=== PATIENT | male | born 1960 | race African-American/Black ===

== ENCOUNTER 2017-05-22 11:03 | Inpatient (IN) | payer OTHER ==
[2017-05-22 11:25] VITALS: BMI 31.1
--- NOTE | 2017-05-22 11:29 | PDOC ---
History of Present Illness - General Chief Complaint: Diarrhea Stated Complaint: NAUSEA, DRY HEAVES, DIARRHEA Time Seen by Provider: 05/22/17 11:15 History Source: Patient Exam Limitations: No Limitations - History of Present Illness Initial Comments: 56 yo M history DM on oral medications presents with N/V/D over the past 5 days. He states that he has been unable to eat or drink, as it is always followed by either vomiting or diarrhea. Last episode of vomiting was this morning. He has not tried to eat anything since that time. Denies f/c. He states that his abdomen feels "queasy", but not specifically pain. He states that his last A1C was 10.8, he does not check fingerstick glucose at home. Past History - Past Medical History Allergies/Adverse Reactions: Allergies Allergy/AdvReac Type Severity Reaction Status Date / Time No Known Allergies Allergy Verified 05/22/17 11:17 Home Medications: Ambulatory Orders Glipizide [Glucotrol] 5 mg PO BID 05/22/17 Metformin HCl [Metformin HCl ER] 500 mg PO BID 05/22/17 - Psycho/Social/Smoking Cessation Hx Anxiety: No Suicidal Ideation: No Smoking History: Never smoked Hx Alcohol Use: No Drug/Substance Use Hx: No Substance Use Type: None Review of Systems - Review of Systems Able to Perform ROS?: Yes Comments:: GENERAL/CONSTITUTIONAL: No fever or chills. No weakness. HEAD, EYES, EARS, NOSE AND THROAT: No change in vision. No ear pain or discharge. No sore throat. CARDIOVASCULAR: No chest pain or shortness of breath. RESPIRATORY: No cough, wheezing, or hemoptysis. GASTROINTESTINAL: +Nausea, vomiting, diarrhea. GENITOURINARY: No dysuria, frequency, or change in urination. MUSCULOSKELETAL: No joint or muscle swelling or pain. No neck or back pain. SKIN: No rash NEUROLOGIC: No headache, vertigo, loss of consciousness, or change in strength/ sensation. ENDOCRINE: No increased thirst. No abnormal weight change. HEMATOLOGIC/LYMPHATIC: No anemia, easy bleeding, or history of blood clots. ALLERGIC/IMMUNOLOGIC: No hives or skin allergy. *Physical Exam - Vital Signs Last Vital Signs Temp Pulse Resp BP Pulse Ox 99.9 F H 80 15 147/90 99 05/22/17 11:14 05/22/17 11:14 05/22/17 11:14 05/22/17 11:14 05/22/17 11:14 - Physical Exam Comments: GENERAL: Awake, alert, and fully oriented, in no acute distress. Appears ill but nontoxic. +Mild pallor. HEAD: No signs of trauma EYES: PERRLA, EOMI, sclera anicteric, conjunctiva clear ENT: Auricles normal inspection, hearing grossly normal, nares patent, oropharynx clear without exudates. Dry mucosa NECK: Normal ROM, supple, no lymphadenopathy, JVD, or masses LUNGS: Breath sounds equal, clear to auscultation bilaterally. No wheezes, and no crackles HEART: Regular rate and rhythm, normal S1 and S2, no murmurs, rubs or gallops ABDOMEN: Soft, nontender, normoactive bowel sounds. No guarding, no rebound. No masses EXTREMITIES: Normal range of motion, no edema. No clubbing or cyanosis. No cords , erythema, or tenderness NEUROLOGICAL: Cranial nerves II through XII grossly intact. Normal speech, normal gait SKIN: Warm, Dry, normal turgor, no rashes or lesions noted. ED Treatment Course - LABORATORY CBC & Chemistry Diagram: 05/22/17 11:37 05/22/17 11:37 Medical Decision Making - Medical Decision Making 05/22/17 15:05 CT and lab results reviewed with patient. He is agreeable to inpatient admission. D/w Dr. Abdullahi, will admit to hospitalist. D/w hospitalist. *DC/Admit/Observation/Transfer Diagnosis at time of Disposition: Pancreatitis Qualifiers: Chronicity: acute Pancreatitis type: unspecified pancreatitis type Acute pancreatitis complication: no infection or necrosis Qualified Code(s): K85.90 - Acute pancreatitis without necrosis or infection, unspecified - Discharge Dispostion Condition at time of disposition: Stable Admit: Yes - Referrals Referrals: Jennifer Abdullahi MD [Primary Care Provider] -
[2017-05-22] MEDS ORDERED: ONDANSETRON 4 MG/2 ML VIAL IVPUSH ONE ×2 (11:30→17:06)
[2017-05-22] MEDS ORDERED: SODIUM CHLORIDE 1,000 ML IV STA (11:30)
[2017-05-22] MEDS ORDERED: morphine CARPU-JECT 4 MG/1 ML DISP.SYRIN IVPUSH ONE ×2 (11:30→17:06)
[2017-05-22] MEDS ORDERED: ONDANSETRON 4 MG/2 ML VIAL ONE ×2 (11:41→17:07)
[2017-05-22] MEDS ORDERED: morphine CARPU-JECT 10 MG/1 ML DISP.SYRIN ONE (11:41)
[2017-05-22 12:10] LABS: ALBUMIN 2.8 g/dl (3.5-5.0); ALK PHOS 60 U/L (32-92); ANION GAP 5 (8-16); BILIRUBIN,TOTAL 0.9 mg/dl (0.2-1.0); CALCIUM 8.3 mg/dl (8.4-10.2); CO2 24 mmol/L (22-28); CREATININE 1.7 mg/dl (0.6-1.3); GLUCOSE,RANDOM 187 mg/dl (74-106); SGOT/AST 37 U/L (10-42); SGPT/ALT 30 U/L (10-40); TOT PROT 5.9 g/dl (6.4-8.3)
[2017-05-22 12:12] LABS: BASOPHIL 0.4 % (0-2.0); EOSINOPHIL 0.2 % (0-4.5); MCH 30.5 pg (25.7-33.7); MCHC 34.5 g/dl (32.0-35.9); MEAN CELL VOLUME 88.5 fl (80-96); MEAN PLT VOLUME 7.8 fl (7.5-11.1); NEUTROPHILS 76.5 % (42.8-82.8); PLATELET COUNT 289 K/MM3 (134-434); RDW 11.7 % (11.9-15.9); WHITE BLOOD COUNT 11.7 K/mm3 (4.0-10.8)
[2017-05-22 14:37] LABS: HIV 1 & 2 AB NEGATIVE; HIV 1 AGp24 NEGATIVE
[2017-05-22] MEDS ORDERED: SODIUM CHLORIDE 1,000 ML IV SCH (15:00)
[2017-05-22] MEDS ORDERED: DEXTROSE 50%-WATER - 25 GM/50 ML VIAL IVPUSH PRN (15:06)
[2017-05-22 15:11] LABS: URINE APPEARANCE Clear; URINE BILIRUBIN Negative (NEGATIVE); URINE GLUCOSE (UA) Trace (NEGATIVE); URINE KETONE Negative (NEGATIVE); URINE LEUK ESTERASE Negative (NEGATIVE); URINE NITRITE Negative (NEGATIVE); URINE UROBILINOGEN 0.2 E.U/dl (0.2-1.0)
[2017-05-22 15:19] LABS: URINE BLOOD 2+ (NEGATIVE); URINE COLOR YELLOW; URINE PROTEIN 3+ (NEGATIVE)
[2017-05-22 15:23] LABS: CHOLESTEROL 155 mg/dl; LDH 371 U/L (91-180)
[2017-05-22 16:19] LABS: URINE BACTERIA RARE /hpf (NEGATIVE); URINE RBC 0-2 /hpf (0-3)
[2017-05-22] MEDS ORDERED: morphine CARPU-JECT 4 MG/1 ML DISP.SYRIN ONE (17:07)
[2017-05-22] MEDS: INSULIN SLIDING SCALE (NOVOLOG) 1 VIAL SQ SCH ×2 (17:55→22:30)
[2017-05-22] MEDS: SODIUM CHLORIDE 1,000 ML IV SCH (17:56)
[2017-05-22] MEDS ORDERED: ONDANSETRON 4 MG/2 ML VIAL IVPUSH PRN (18:08)
--- NOTE | 2017-05-22 21:57 | HP ---
CHIEF COMPLAINT: Nausea, vomiting, diarrhea PCP: Bradly HISTORY OF PRESENT ILLNESS: This is a 56 year old male with a past medical history of diabetes who presented to the ED with a 5 day history of nausea, vomiting and diarrhea. He states that everytime he eats he either vomits or gets diarrhea. No further vomiting since this am; he has not eaten anything since then. He also reports his abdominal pain has resolved. He is vague in his description of his pain and is unable to pinpoint where the pain was. He states "in my abdomen" and then waves his hand all over. He denies SOB, chest pain, palpitations, dysuria. ER course was notable for: (1) elevated lipase 342, normal LFTs (2) WBC 11.7 (3) sodium 130 Recent Travel: PAST MEDICAL HISTORY: DM PAST SURGICAL HISTORY: pt denies Social History: Smoking: pt denies Alcohol: very occasionally, last drink one month ago. Denies binge drinking Drugs: pt denies Family History: mother age 62, in her sleep father age 75, CVAx2 Allergies No Known Allergies Allergy (Verified 05/22/17 11:17) HOME MEDICATIONS: 3 Medication Instructions Recorded Glipizide [Glucotrol] 5 mg PO BID 05/22/17 Metformin HCl [Metformin HCl ER] 500 mg PO BID 05/22/17 REVIEW OF SYSTEMS CONSTITUTIONAL: Absent: fever, chills, diaphoresis, generalized weakness, malaise, loss of appetite, weight change HEENT: Absent: rhinorrhea, nasal congestion, throat pain, throat swelling, difficulty swallowing, mouth swelling, ear pain, eye pain, visual changes CARDIOVASCULAR: Absent: chest pain, syncope, palpitations, irregular heart rate, lightheadedness , peripheral edema RESPIRATORY: Absent: cough, shortness of breath, dyspnea with exertion, orthopnea, wheezing, stridor, hemoptysis GASTROINTESTINAL: Present: abdominal pain, nausea, vomiting, diarrhea Absent: abdominal distension, constipation, melena, hematochezia GENITOURINARY: Absent: dysuria, frequency, urgency, hesitancy, hematuria, flank pain, genital pain MUSCULOSKELETAL: Absent: myalgia, arthralgia, joint swelling, back pain, neck pain SKIN: Absent: rash, itching, pallor HEMATOLOGIC/IMMUNOLOGIC: Absent: easy bleeding, easy bruising, lymphadenopathy, frequent infections ENDOCRINE: Absent: unexplained weight gain, unexplained weight loss, heat intolerance, cold intolerance NEUROLOGIC: Absent: headache, focal weakness or paresthesias, dizziness, unsteady gait, seizure, mental status changes, bladder or bowel incontinence PSYCHIATRIC: Absent: anxiety, depression, suicidal or homicidal ideation, hallucinations. PHYSICAL EXAMINATION Vital Signs - 24 hr 3 05/22/17 05/22/17 05/22/17 11:14 17:35 17:37 Temperature 99.9 F H 100.6 F H 100.6 F H Pulse Rate 80 85 85 Respiratory 15 18 18 Rate Blood Pressure 147/90 161/77 161/77 O2 Sat by Pulse 99 Oximetry (%) GENERAL: Awake, alert, and fully oriented, in no acute distress. HEAD: Normal with no signs of trauma. EYES: Pupils equal, round and reactive to light, extraocular movements intact, sclera anicteric, conjunctiva clear. No lid lag. EARS, NOSE, THROAT: Ears normal, nares patent, oropharynx clear without exudates. Moist mucous membranes. NECK: Normal range of motion, supple without lymphadenopathy, JVD, or masses. LUNGS: Breath sounds equal, clear to auscultation bilaterally. No wheezes, and no crackles. No accessory muscle use. HEART: Regular rate and rhythm, normal S1 and S2 without murmur, rub or gallop. ABDOMEN: Soft, nontender, not distended, normoactive bowel sounds, no guarding, no rebound, no masses. No hepatomegaly or splenomegaly. MUSCULOSKELETAL: Normal range of motion at all joints. No bony deformities or tenderness. No CVA tenderness. UPPER EXTREMITIES: 2+ pulses, warm, well-perfused. No cyanosis. No clubbing. No peripheral edema. LOWER EXTREMITIES: 2+ pulses, warm, well-perfused. No calf tenderness. No peripheral edema. NEUROLOGICAL: Cranial nerves II-XII intact. Normal speech. Normal gait. PSYCHIATRIC: Cooperative. Good eye contact. Appropriate mood and affect. SKIN: Warm, dry, normal turgor, no rashes or lesions noted, normal capillary refill. Laboratory Results - last 24 hr 3 05/22/17 05/22/17 05/22/17 11:30 11:37 11:37 WBC 11.7 H RBC 4.54 Hgb 13.9 Hct 40.2 MCV 88.5 MCHC 34.5 RDW 11.7 L Plt Count 289 MPV 7.8 Neutrophils % 76.5 Lymphocytes % 8.9 Monocytes % 14.0 H Eosinophils % 0.2 Basophils % 0.4 Sodium 130 L Potassium 3.8 Chloride 101 Carbon Dioxide 24 Anion Gap 5 L BUN 19 H Creatinine 1.7 H Creat Clearance w eGFR 42.21 Random Glucose 187 H Calcium 8.3 L Total Bilirubin 0.9 AST 37 ALT 30 Alkaline Phosphatase 60 LD Total Total Protein 5.9 L Albumin 2.8 L Triglycerides Cholesterol Total LDL Cholesterol HDL Cholesterol Lipase 342 H Urine Color Urine Appearance Urine pH Ur Specific [place] Urine Protein Urine Glucose (UA) Urine Ketones Urine Blood Urine Nitrite Urine Bilirubin Urine Urobilinogen Ur Leukocyte Esterase Urine RBC Urine WBC Urine Bacteria Acetone, Qual HIV 1&2 Antibody Screen Negative HIV P24 Antigen Negative 3 05/22/17 05/22/17 05/22/17 11:37 14:15 15:06 WBC RBC Hgb Hct MCV MCHC RDW Plt Count MPV Neutrophils % Lymphocytes % Monocytes % Eosinophils % Basophils % Sodium Potassium Chloride Carbon Dioxide Anion Gap BUN Creatinine Creat Clearance w eGFR Random Glucose Calcium Total Bilirubin AST ALT Alkaline Phosphatase LD Total 371 H Total Protein Albumin Triglycerides 119 Cholesterol 155 Total LDL Cholesterol 106 HDL Cholesterol 25 L Lipase Urine Color Yellow Urine Appearance Clear Urine pH 6.0 Ur Specific [place] 1.020 Urine Protein 3+ H Urine Glucose (UA) Trace Urine Ketones Negative Urine Blood 2+ H Urine Nitrite Negative Urine Bilirubin Negative Urine Urobilinogen 0.2 e.u/dl Ur Leukocyte Esterase Negative Urine RBC 0-2 Urine WBC 1-3 Urine Bacteria Rare Acetone, Qual Negative HIV 1&2 Antibody Screen HIV P24 Antigen Rad[address] Results CT/ABDOMEN PELVIS CT W/O CONTR HISTORY PROVIDED: Nausea and vomiting, fever TECHNIQUE: Sequential axial images were obtained from the domes of the diaphragm through the symphysis pubis following the administration of oral contrast material. The liver, spleen, pancreas, adrenal glands and kidneys demonstrate no significant abnormalities. Gallstones are identified within the gallbladder. There is no evidence of intra-abdominal or retroperitoneal lymphadenopathy or fluid collections. There is no evidence of pneumoperitoneum, bowel obstruction or intra-abdominal abscess. There is no CT evidence of acute appendicitis or diverticulitis. Examination of the pelvis demonstrates no evidence of pelvic masses, fluid collections or lymphadenopathy. The prostate gland is mildly enlarged. There is no evidence of acute bony pathology. IMPRESSION: Cholelithiasis and prostatic enlargement. No acute pathology within the abdomen or pelvis. Please see above discussion. ECG NSR, vent rate 77, QTC 416, NO acute ST/T changes ASSESSMENT/PLAN: 56yM with PMH DM presented to ED with N/V/D. He has been admitted for pancreatitis. Pancreatitis - unclear etiology, gallstones present on CT, but no duct dilation and LFTs WNL - no abscess noted on CT - keep NPO for now - IVF NS@150cc/hr - repeat labs including LFTs in am - abdominal sono in am CARMEN - Cr 1.7, baseline unknown but pt denies any h/o renal issues - ? r/t volume depletion, vomiting/diarrhea - repeat in am, if Cr not trending down, renal consult Hyponatremia - likely r/t vomiting/diarrhea, will hydrate with NS and repeat in am - urine sodium, protein, cr, BUN, osmolality ordered. Diabetes - hold po meds - BGM TIDAC and HS with sliding scale DVT PPX - heparin SC FEN - NS @ 150cc/hr - Repeat lytes in am - NPO for now Dispo: Pt currently requires inpatient management of his emergent condition. Visit type - Emergency Visit Emergency Visit: Yes ED Registration Date: 05/22/17 Care time: The patient presented to the Emergency Department on the above date and was hospitalized for further evaluation of their emergent condition. - New Patient This patient is new to me today: Yes Date on this admission: 05/22/17 - Critical Care Critical Care patient: No
[2017-05-22] MEDS: HEPARIN NA (PORCINE) 5,000 UNITS/ML 1ML VIAL SQ SCH (22:30)
[2017-05-23] MEDS: morphine CARPU-JECT 4 MG/1 ML DISP.SYRIN IVPUSH PRN (01:35)
[2017-05-23] MEDS: INSULIN SLIDING SCALE (NOVOLOG) 1 VIAL SQ SCH ×5 (07:00→21:42)
[2017-05-23 08:26] LABS: BASOPHIL 0.2 % (0-2.0); EOSINOPHIL 0.4 % (0-4.5); MCHC 34.1 g/dl (32.0-35.9); MEAN CELL VOLUME 88.1 fl (80-96); MEAN PLT VOLUME 8.1 fl (7.5-11.1); NEUTROPHILS 77.3 % (42.8-82.8); PLATELET COUNT 294 K/MM3 (134-434); RDW 11.6 % (11.9-15.9); WHITE BLOOD COUNT 10.3 K/mm3 (4.0-10.8)
[2017-05-23 08:50] LABS: ANION GAP 5 (8-16); CALCIUM 7.7 mg/dl (8.4-10.2); CO2 23 mmol/L (22-28); GLUCOSE,RANDOM 166 mg/dl (74-106)
[2017-05-23 08:51] LABS: ALBUMIN 2.4 g/dl (3.5-5.0); ALK PHOS 54 U/L (32-92); MAGNESIUM 2.1 mg/dL (1.8-2.4); PHOSPHOROUS 3.7 mg/dl (2.5-4.6); SGOT/AST 38 U/L (10-42); SGPT/ALT 25 U/L (10-40); TOT PROT 5.4 g/dl (6.4-8.3)
[2017-05-23] MEDS ORDERED: SODIUM CHLORIDE 500 ML IV STA (09:35)
--- NOTE | 2017-05-23 09:36 | PN ---
Physical Exam: SUBJECTIVE: Patient seen and examined. Feels better; no abdominal pain or n/v/ d. No chills. OBJECTIVE: Hospital day #1 for this 56 year old male with a history of poorly- controlled NIDDM (HgbA1C here is 10.2%) presenting with 5 days of n/v/d. TMax here 100.6 last night. Vital Signs Period Temp Pulse Resp BP Sys/Ann Pulse Ox Last 24 Hr 98.8 F-100.6 F 71-85 18-19 147-171/71-77 97-98 GENERAL: The patient is awake, alert, and fully oriented, in no acute distress. HEAD: Normal with no signs of trauma. EYES: PERRL, extraocular movements intact, sclera anicteric, conjunctiva clear. No ptosis. ENT: Ears normal, nares patent, oropharynx clear without exudates, moist mucous membranes. NECK: Trachea midline, full range of motion, supple. LUNGS: Breath sounds equal, clear to auscultation bilaterally, no wheezes, no crackles, no accessory muscle use. HEART: Regular rate and rhythm, S1, S2 without murmur, rub or gallop. ABDOMEN: Soft, nontender, nondistended, normoactive bowel sounds, no guarding, no rebound, no hepatosplenomegaly, no masses. EXTREMITIES: 2+ pulses, warm, well-perfused, no edema. NEUROLOGICAL: Cranial nerves II through XII grossly intact. Normal speech, gait not observed. PSYCH: Normal mood, normal affect. SKIN: Warm, dry, normal turgor, no rashes or lesions noted Laboratory Results - last 24 hr 05/23/17 05/23/17 05/23/17 01:39 01:40 07:00 WBC 10.3 RBC 4.32 Hgb 13.0 Hct 38.1 MCV 88.1 MCHC 34.1 RDW 11.6 L Plt Count 294 MPV 8.1 Neutrophils % 77.3 Lymphocytes % 8.7 Monocytes % 13.4 H Eosinophils % 0.4 D Basophils % 0.2 Sodium Potassium Chloride Carbon Dioxide Anion Gap BUN Creatinine Creat Clearance w eGFR Random Glucose Hemoglobin A1c % Calcium Phosphorus Magnesium Total Bilirubin AST ALT Alkaline Phosphatase Total Protein Albumin Lipase Urine Protein 742 Urine Osmolality 362 Ur Random Sodium 33 Urine Creatinine 133.0 05/23/17 05/23/17 05/23/17 07:00 07:00 07:00 WBC RBC Hgb Hct MCV MCHC RDW Plt Count MPV Neutrophils % Lymphocytes % Monocytes % Eosinophils % Basophils % Sodium 133 L Potassium 3.9 Chloride 105 Carbon Dioxide 23 Anion Gap 5 L BUN 26 H D Creatinine 2.0 H Creat Clearance w eGFR 34.99 Random Glucose 166 H Hemoglobin A1c % 10.2 H Calcium 7.7 L Phosphorus 3.7 Magnesium 2.1 Total Bilirubin 1.0 AST 38 ALT 25 Alkaline Phosphatase 54 Total Protein 5.4 L Albumin 2.4 L Lipase 45 Urine Protein Urine Osmolality Ur Random Sodium Urine Creatinine 05/23/17 07:00 WBC RBC Hgb Hct MCV MCHC RDW Plt Count MPV Neutrophils % Lymphocytes % Monocytes % Eosinophils % Basophils % Sodium Potassium Chloride Carbon Dioxide Anion Gap BUN 26 H Creatinine Creat Clearance w eGFR Random Glucose Hemoglobin A1c % Calcium Phosphorus Magnesium Total Bilirubin AST ALT Alkaline Phosphatase Total Protein Albumin Lipase Urine Protein Urine Osmolality Ur Random Sodium Urine Creatinine Active Medications Generic Name Dose Route Start Last Admin Trade Name Freq PRN Reason Stop Dose Admin Heparin Sodium (Porcine) 5,000 unit 05/22/17 22:00 05/22/17 22:30 Heparin - SQ Not Given BID [facility] Sodium Chloride 1,000 mls @ 150 mls/hr 05/22/17 15:08 05/22/17 17:56 Normal Saline - IV Not Given ASDIR ELSI Sodium Chloride 500 mls @ 500 mls/hr 05/23/17 09:35 Normal Saline - IV 05/23/17 10:34 ASDIR STA Insulin Aspart 0 vial 05/22/17 16:30 05/22/17 22:30 Novolog Vial Sliding Scale - SQ Not Given ACHS [facility] Protocol Morphine Sulfate 4 mg 05/22/17 15:07 05/23/17 01:35 Morphine Injection - IVPUSH 4 mg Q4H PRN Administration PAIN Ondansetron HCl 4 mg 05/22/17 18:08 Zofran Injection IVPUSH Q6H PRN NAUSEA AND/OR VOMITING CTAP CT/ABDOMEN PELVIS CT W/ ORAL CONTRAST ONLY: Cholelithiasis and prostatic enlargement. No acute pathology within the abdomen or pelvis. Abd u/s Cholelithiasis without sonographic evidence of acute cholecystitis. No evidence of acute pancreatitis. Echogenic right kidney suspicious for medical renal disease. ECG NSR, vent rate 77, QTC 416, NO acute ST/T changes ASSESSMENT/PLAN: 56 year old male with NIDDM presenting with 5 days of n/v/d. 1. GI: n/v/d -Lipase mildly elevated at 342 yesterday, normal today at 44 -Gallstones seen on CT; followup ultrasound today does not show any evidence of cholecystitis -LFTs within normal limits -AG 5, acetone negative -Trial of clears -Continue IVF 2. Renal insufficiency, ?CARMEN-on-CKD -FENa 0.4%, consistent with pre-renal process (likely hypovolemia) -However, Cr increased from 1.7 yesterday to 2.0 today -Abdominal u/s incidentally shows echogenic right kidney suspicious for medical renal disease -Give NS 500 mL bolus -Renal evaluation 3. Hyponatremia -Mild, asymptomatic -Improving -Continue hydration, follow 4. DM -Hold oral hypoglycemics while inpatient -FS q6h -ISS -Diabetic diet when resumes PO 5. Ppx -Sqh Dispo: Pt currently requires inpatient management of his emergent condition. Visit type - Emergency Visit Emergency Visit: Yes ED Registration Date: 05/22/17 Care time: The patient presented to the Emergency Department on the above date and was hospitalized for further evaluation of their emergent condition. - New Patient This patient is new to me today: Yes Date on this admission: 06/07/17 - Critical Care Critical Care patient: No - Discharge Referral Referred to [facility] Med P.C.: No
[2017-05-23] MEDS: HEPARIN NA (PORCINE) 5,000 UNITS/ML 1ML VIAL SQ SCH ×2 (10:39→21:42)
[2017-05-23] MEDS: SODIUM CHLORIDE 1,000 ML IV SCH (11:00)
--- NOTE | 2017-05-23 11:01 | CONSULT ---
Consult Consult Specialty:: Nephrology ( Drs. Tenorio/ Noel) Referred by:: Dr. Ching Reason for Consultation:: Acute Kidney failure - History of Present Illness Chief Complaint: Diarrhea, vomiting and profould weakness. History of Present Illness: Many thanks for this consult referral. This is a 56 y/o male admitted with with several days of diarrhea, vomiting, weakness. The patient has a h/o Diabetes mellitus for > 20 years. Not aware of any kidney involvement by Diabetes. Denies any chest pain, shortness of breath. 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 No: Cirrhosis Renal/: No: BPH, Cancer - Alcohol/Substance Use Hx Alcohol Use: No - Smoking History Smoking history: Former smoker Have you smoked in the past 12 months: No If you are a former smoker, when did you quit?: 30 YEARS AGO Home Medications - Allergies Allergies/Adverse Reactions: Allergies Allergy/AdvReac Type Severity Reaction Status Date / Time No Known Allergies Allergy Verified 05/22/17 11:17 - Home Medications Home Medications: Ambulatory Orders Glipizide [Glucotrol] 5 mg PO BID 05/22/17 Metformin HCl [Metformin HCl ER] 500 mg PO BID 05/22/17 Review of Systems - Review of Systems Constitutional: denies: Diaphoresis, Fever Eyes: denies: Blind Spots HENT: denies: Difficult Swallowing Cardiovascular: denies: Chest Pain, Edema, Palpitations, Shortness of Breath Respiratory: denies: Cough, SOB Gastrointestinal: reports: Abdominal Pain, Diarrhea, Nausea, Vomiting Genitourinary: denies: Burning, Testicular Swelling, Urgency Neurological: denies: Change in LOC, Change in Speech Physical Exam Vital Signs: Vital Signs Temperature 98.8 F 05/23/17 05:00 Pulse Rate 71 05/23/17 05:00 Respiratory Rate 18 05/23/17 08:55 Blood Pressure 171/71 05/23/17 05:00 O2 Sat by Pulse Oximetry (%) 97 05/23/17 08:55 Constitutional: Yes: No Distress, Anxious HENT: Yes: Normocephalic Neck: Yes: Trachea Midline Cardiovascular: Yes: Regular Rate and Rhythm, S1, S2 Respiratory: Yes: Regular, CTA Bilaterally Gastrointestinal: Yes: Soft, Hyperactive Bowel Sounds, Tenderness (diffuse mild) Renal/: No: Bladder Distention, CVA Tenderness - Left, CVA Tenderness - Right Musculoskeletal: No: Joint Stiffness Labs: CBC, BMP 05/23/17 07:00 05/23/17 07:00 Problem List - Problems (1) Acute kidney failure Code(s): N17.9 - ACUTE KIDNEY FAILURE, UNSPECIFIED (2) Hypovolemia Code(s): E86.1 - HYPOVOLEMIA (3) Vomiting Code(s): R11.10 - VOMITING, UNSPECIFIED (4) Diarrhea Code(s): R19.7 - DIARRHEA, UNSPECIFIED (5) Diabetes mellitus Code(s): E11.9 - TYPE 2 DIABETES MELLITUS WITHOUT COMPLICATIONS Assessment/Plan This is a 56 y/o male, with H/o Insulin dependent Type 2 DM, admitted with protracted vomiting and diarrhea, and Significant volume depletion. Acute Kidney Injury: Possibly mediated by deranged hemodynamics in the setting of hypovolemia, resulting in Renal hypoperfusion and profound Pre Renal azotemia. This is evident by the urine studies. The patient's baseline renal function is not known at this time. PLAN: Baseline w/u as ordered. Vigorous IV hydration to continue. The Renal functions are expected to improve. But may transiently worsen before the improvement starts. Renal sonogram does not show any specific findings of concern. Will follow with you. Thanks again. Adriana Tenorio MD
[2017-05-23] MEDS ORDERED: INSULIN (NOVOLOG) ASPART 100 UNITS/ML 10ML VIAL ONE (21:38)
[2017-05-24 08:53] LABS: BASOPHIL 0.3 % (0-2.0); EOSINOPHIL 1.2 % (0-4.5); MCH 30.7 pg (25.7-33.7); MCHC 34.9 g/dl (32.0-35.9); MEAN CELL VOLUME 88.2 fl (80-96); MEAN PLT VOLUME 8.1 fl (7.5-11.1); NEUTROPHILS 74.6 % (42.8-82.8); PLATELET COUNT 282 K/MM3 (134-434); RDW 11.5 % (11.9-15.9); WHITE BLOOD COUNT 9.1 K/mm3 (4.0-10.8)
[2017-05-24 08:58] LABS: ALBUMIN 2.1 g/dl (3.5-5.0); ALK PHOS 65 U/L (32-92); ANION GAP 5 (8-16); BILIRUBIN,TOTAL 0.8 mg/dl (0.2-1.0); CALCIUM 7.5 mg/dl (8.4-10.2); CO2 23 mmol/L (22-28); CREATININE 2.4 mg/dl (0.6-1.3); GLUCOSE,RANDOM 157 mg/dl (74-106); SGOT/AST 50 U/L (10-42); SGPT/ALT 32 U/L (10-40); TOT PROT 5.2 g/dl (6.4-8.3)
--- NOTE | 2017-05-24 09:10 | PN ---
Physical Exam: SUBJECTIVE: Patient seen and examined at bedside. Pt without c/o offered. OBJECTIVE: Vital Signs Period Temp Pulse Resp BP Sys/Ann Pulse Ox Last 24 Hr 99.0 F-99.7 F 62-78 18-21 156-179/70-82 98-99 GENERAL: The patient is awake, alert, and fully oriented, in no acute distress. HEAD: Normal with no signs of trauma. EYES: PERRL, extraocular movements intact, sclera anicteric, conjunctiva clear. No ptosis. ENT: Ears normal, nares patent, oropharynx clear without exudates, moist mucous membranes. NECK: Trachea midline, full range of motion, supple. LUNGS: Breath sounds equal, clear to auscultation bilaterally, no wheezes, no crackles, no accessory muscle use. HEART: Regular rate and rhythm, S1, S2 without murmur, rub or gallop. ABDOMEN: Soft, nontender, nondistended, normoactive bowel sounds, no guarding, no rebound, no hepatosplenomegaly, no masses. EXTREMITIES: 2+ pulses, warm, well-perfused, no edema. NEUROLOGICAL: Cranial nerves II through XII grossly intact. Normal speech, gait not observed. PSYCH: Normal mood, normal affect. SKIN: Warm, dry, normal turgor, no rashes or lesions noted Laboratory Results - last 24 hr 05/23/17 05/23/17 05/23/17 07:00 11:56 16:27 WBC RBC Hgb Hct MCV MCHC RDW Plt Count MPV Neutrophils % Lymphocytes % Monocytes % Eosinophils % Basophils % Sodium Potassium Chloride Carbon Dioxide Anion Gap BUN Creatinine Creat Clearance w eGFR POC Glucometer 142 187 Random Glucose Hemoglobin A1c % 10.2 H Calcium Total Bilirubin AST ALT Alkaline Phosphatase Total Protein Albumin 05/23/17 05/24/17 05/24/17 21:35 06:36 06:36 WBC 9.1 RBC 3.92 L Hgb 12.1 Hct 34.6 L MCV 88.2 MCHC 34.9 RDW 11.5 L Plt Count 282 MPV 8.1 Neutrophils % 74.6 Lymphocytes % 11.1 D Monocytes % 12.8 H Eosinophils % 1.2 D Basophils % 0.3 Sodium 135 L Potassium 4.3 Chloride 107 Carbon Dioxide 23 Anion Gap 5 L BUN 25 H Creatinine 2.4 H Creat Clearance w eGFR 28.35 POC Glucometer 185 Random Glucose 157 H Hemoglobin A1c % Calcium 7.5 L Total Bilirubin 0.8 AST 50 H D ALT 32 D Alkaline Phosphatase 65 D Total Protein 5.2 L Albumin 2.1 L Active Medications Generic Name Dose Route Start Last Admin Trade Name Lakeq PRN Reason Stop Dose Admin Heparin Sodium (Porcine) 5,000 unit 05/22/17 22:00 05/23/17 21:42 Heparin - SQ 5,000 unit BID ELSI Administration Sodium Chloride 1,000 mls @ 150 mls/hr 05/22/17 15:08 05/23/17 11:00 Normal Saline - IV 150 mls/hr ASDIR ELSI Administration Insulin Aspart 0 vial 05/22/17 16:30 05/23/17 21:42 Novolog Vial Sliding Scale - SQ 2 units ACHS ELSI Administration Protocol Morphine Sulfate 4 mg 05/22/17 15:07 05/23/17 01:35 Morphine Injection - IVPUSH 4 mg Q4H PRN Administration PAIN Ondansetron HCl 4 mg 05/22/17 18:08 Zofran Injection IVPUSH Q6H PRN NAUSEA AND/OR VOMITING ASSESSMENT/PLAN: 1. GI: n/v/d -Lipase added on to labs today, yesterday was 45 normal -Gallstones seen on CT; U/S does not show any evidence of cholecystitis -LFTs within limits pending lipase -AG 5, acetone negative -advance diet to ADA low salt diet -Continue IVF per renal (need to monitor Cr as it is now 2.5 worsening, which may be part of recovery per renal. Will have them reassess today) 2. Renal insufficiency, ?CARMEN-on-CKD -FENa 0.4%, consistent with pre-renal process (likely hypovolemia) -However, Cr increased from 1.7, 2.0, to 2.5 today -Abdominal u/s incidentally shows echogenic right kidney suspicious for medical renal disease -on IVF -Renal to reassess ?continue fluids. 3. Hyponatremia -Mild, asymptomatic -Improving -Continue hydration, follow 4. DM -Hold oral hypoglycemics while inpatient -FS q6h -ISS -Diabetic diet when resumes PO 5. Ppx -Sqh 6. Blood pressure elevated -starting norvasc 5 mg today for elevated b/p Dispo: Pt currently requires inpatient management of his emergent condition. Problem List - Problems (1) Acute kidney failure Code(s): N17.9 - ACUTE KIDNEY FAILURE, UNSPECIFIED (2) Diabetes mellitus Code(s): E11.9 - TYPE 2 DIABETES MELLITUS WITHOUT COMPLICATIONS (3) Hypertension Code(s): I10 - ESSENTIAL (PRIMARY) HYPERTENSION Visit type - Emergency Visit Emergency Visit: Yes ED Registration Date: 05/22/17 Care time: The patient presented to the Emergency Department on the above date and was hospitalized for further evaluation of their emergent condition. - New Patient This patient is new to me today: Yes Date on this admission: 05/24/17 - Critical Care Critical Care patient: No - Discharge Referral Referred to [facility] Med P.C.: No
[2017-05-24] MEDS: HEPARIN NA (PORCINE) 5,000 UNITS/ML 1ML VIAL SQ SCH ×2 (10:50→21:26)
[2017-05-24] MEDS ORDERED: amLODIPine BESYLATE 5 MG TABLET (FP) PO SCH (11:26)
--- NOTE | 2017-05-24 11:30 | PN ---
Progress Note (short form) - Note Progress Note: RN spoke with Dr. Jessica Rodriguez regarding elevated cr of 2.4. IVF will continue per his recommendations and feels it will worsen before it will improve. Norvasc started. Discussed with pt and regarding a plan of care of his medical issues. -home monitor glucose -compliance of medications -follow up with Dr. Abdullahi, Dr. Rodriguez -starting exercise -changing diet -avoid salt and carbs excess intake. Problem List - Problems (1) Acute kidney failure Code(s): N17.9 - ACUTE KIDNEY FAILURE, UNSPECIFIED (2) Diabetes mellitus Code(s): E11.9 - TYPE 2 DIABETES MELLITUS WITHOUT COMPLICATIONS (3) Hypertension Code(s): I10 - ESSENTIAL (PRIMARY) HYPERTENSION Visit type - Emergency Visit Emergency Visit: Yes ED Registration Date: 05/22/17 Care time: The patient presented to the Emergency Department on the above date and was hospitalized for further evaluation of their emergent condition. - New Patient This patient is new to me today: Yes Date on this admission: 05/24/17 - Critical Care Critical Care patient: No - Discharge Referral Referred to [facility] Med P.C.: No
--- NOTE | 2017-05-24 13:29 | EKG ---
Test Reason : Blood Pressure : / mmHG Vent. Rate : 077 BPM Atrial Rate : 077 BPM P-R Int : 164 ms QRS Dur : 096 ms QT Int : 368 ms P-R-T Axes : 039 -16 009 degrees QTc Int : 416 ms NORMAL SINUS RHYTHM POSSIBLE SEPTAL INFARCT , AGE UNDETERMINED ABNORMAL ECG NO PREVIOUS ECGS AVAILABLE Confirmed by LEONILA REDD MD ([id number]) on 05/24/2017 1:29:21 PM Referred By: Confirmed By:LEONILA REDD MD
--- NOTE | 2017-05-24 14:59 | PN ---
Progress Note, Physician History of Present Illness: Many thanks for this consult referral. This is a 56 y/o male admitted with with several days of diarrhea, vomiting, weakness. The patient has a h/o Diabetes mellitus for > 20 years. Not aware of any kidney involvement by Diabetes. Reports good urine output. - Current Medication List Current Medications: Active Medications Amlodipine Besylate (Norvasc -) 5 mg PO DAILY [facility] Heparin Sodium (Porcine) (Heparin -) 5,000 unit SQ BID [facility] Last Admin: 05/24/17 10:50 Dose: Not Given Sodium Chloride (Normal Saline -) 1,000 mls @ 150 mls/hr IV ASDIR [facility] Last Admin: 05/23/17 11:00 Dose: 150 mls/hr Insulin Aspart (Novolog Vial Sliding Scale -) 0 vial SQ ACHS [facility] PRN Reason: Protocol Last Admin: 05/23/17 21:42 Dose: 2 units Morphine Sulfate (Morphine Injection -) 4 mg IVPUSH Q4H PRN PRN Reason: PAIN Last Admin: 05/23/17 01:35 Dose: 4 mg Ondansetron HCl (Zofran Injection) 4 mg IVPUSH Q6H PRN PRN Reason: NAUSEA AND/OR VOMITING - Objective Vital Signs: Vital Signs Temperature 97.6 F 05/24/17 14:15 Pulse Rate 68 05/24/17 14:15 Respiratory Rate 18 05/24/17 14:15 Blood Pressure 149/72 05/24/17 14:15 O2 Sat by Pulse Oximetry (%) 98 05/24/17 14:15 Constitutional: Yes: Well Nourished, No Distress Eyes: Yes: Conjunctiva Clear HENT: Yes: Normocephalic Neck: Yes: Trachea Midline Cardiovascular: Yes: Regular Rate and Rhythm, S1, S2 Respiratory: Yes: CTA Bilaterally. No: Rales, Rhonchi Gastrointestinal: Yes: Normal Bowel Sounds, Abdomen, Obese Genitourinary: No: CVA Tenderness - Left, CVA Tenderness - Right Edema: No Labs: CBC, BMP 05/24/17 06:36 05/24/17 06:36 Problem List - Problems (1) Acute kidney failure Code(s): N17.9 - ACUTE KIDNEY FAILURE, UNSPECIFIED (2) Hypovolemia Code(s): E86.1 - HYPOVOLEMIA (3) Vomiting Code(s): R11.10 - VOMITING, UNSPECIFIED (4) Diarrhea Code(s): R19.7 - DIARRHEA, UNSPECIFIED (5) Diabetes mellitus Code(s): E11.9 - TYPE 2 DIABETES MELLITUS WITHOUT COMPLICATIONS Assessment/Plan This is a 56 y/o male, with H/o Insulin dependent Type 2 DM, admitted with protracted vomiting and diarrhea, and Significant volume depletion. NVomiting had subsided. Had one BM today. Acute Kidney Injury: Possibly mediated by deranged hemodynamics in the setting of hypovolemia, resulting in Renal hypoperfusion and profound Pre Renal azotemia. It is likely that the Serum Creatinine will rise before staring to platau. Also of note is proteinuria. Will quantitate. The patient's baseline renal function is not known at this time. PLAN: Baseline w/u as ordered. Vigorous IV hydration to continue. Serology as ordered. Renal sonogram does not show any specific findings of concern. Will follow with you. Thanks again. Adriana Tenorio MD
[2017-05-24] MEDS ORDERED: amLODIPine BESYLATE 5 MG TABLET (FP) PO ONE (15:07)
[2017-05-24] MEDS: SODIUM CHLORIDE 1,000 ML IV SCH (16:49)
[2017-05-24] MEDS: morphine CARPU-JECT 4 MG/1 ML DISP.SYRIN IVPUSH PRN (19:33)
[2017-05-24] MEDS: INSULIN SLIDING SCALE (NOVOLOG) 1 VIAL SQ SCH (21:26)
[2017-05-25] MEDS: INSULIN SLIDING SCALE (NOVOLOG) 1 VIAL SQ SCH ×4 (06:57→21:32)
[2017-05-25 09:10] LABS: BASOPHIL 0.5 % (0-2.0); MCH 30.6 pg (25.7-33.7); MCHC 34.7 g/dl (32.0-35.9); MEAN CELL VOLUME 88.2 fl (80-96); MEAN PLT VOLUME 8.2 fl (7.5-11.1); PLATELET COUNT 304 K/MM3 (134-434); RDW 11.8 % (11.9-15.9); WHITE BLOOD COUNT 9.1 K/mm3 (4.0-10.8)
[2017-05-25] MEDS: HEPARIN NA (PORCINE) 5,000 UNITS/ML 1ML VIAL SQ SCH ×2 (09:29→21:33)
[2017-05-25 09:33] LABS: ALBUMIN 1.9 g/dl (3.5-5.0); ALK PHOS 74 U/L (32-92); BILIRUBIN,TOTAL 0.5 mg/dl (0.2-1.0); CALCIUM 7.3 mg/dl (8.4-10.2); CREATININE 2.7 mg/dl (0.6-1.3); GLUCOSE,RANDOM 154 mg/dl (74-106); MAGNESIUM 2.3 mg/dL (1.8-2.4); SGOT/AST 49 U/L (10-42); SGPT/ALT 37 U/L (10-40); URIC ACID 7.6 mg/dl (2.6-7.2)
[2017-05-25] MEDS ORDERED: amLODIPine BESYLATE 5 MG TABLET (FP) PO SCH (10:00)
[2017-05-25 10:15] LABS: THYROID STIMULATING HORMONE 2.02 uIU/ml (0.358-3.74)
--- NOTE | 2017-05-25 10:29 | PN ---
Progress Note, Physician Chief Complaint: The patient is in bed. Had an epsode of vomiting this morning. Denies any abd pain. No chest pain. Good urine out put. History of Present Illness: This is a 56 y/o male admitted with with several days of diarrhea, vomiting, weakness. The patient has a h/o Diabetes mellitus for > 20 years. The patient has tendency for Hypertension. ON Amlodipine 5 mg. - Current Medication List Current Medications: Active Medications Amlodipine Besylate (Norvasc -) 5 mg PO DAILY [facility] Last Admin: 05/25/17 09:26 Dose: 5 mg Heparin Sodium (Porcine) (Heparin -) 5,000 unit SQ BID [facility] Last Admin: 05/25/17 09:29 Dose: Not Given Sodium Chloride (Normal Saline -) 1,000 mls @ 150 mls/hr IV ASDIR [facility] Last Admin: 05/24/17 16:49 Dose: 150 mls/hr Insulin Aspart (Novolog Vial Sliding Scale -) 0 vial SQ ACHS [facility] PRN Reason: Protocol Last Admin: 05/25/17 06:57 Dose: 2 units Morphine Sulfate (Morphine Injection -) 4 mg IVPUSH Q4H PRN PRN Reason: PAIN Last Admin: 05/24/17 19:33 Dose: 4 mg Ondansetron HCl (Zofran Injection) 4 mg IVPUSH Q6H PRN PRN Reason: NAUSEA AND/OR VOMITING - Objective Vital Signs: Vital Signs Temperature 98.8 F 05/25/17 06:00 Pulse Rate 65 05/25/17 06:00 Respiratory Rate 18 05/25/17 08:34 Blood Pressure 163/73 05/25/17 06:00 O2 Sat by Pulse Oximetry (%) 100 05/25/17 08:34 Constitutional: Yes: Well Nourished, Anxious Eyes: Yes: Conjunctiva Clear HENT: Yes: Atraumatic Cardiovascular: Yes: Regular Rate and Rhythm, S1, S2 Respiratory: Yes: CTA Bilaterally Gastrointestinal: Yes: Normal Bowel Sounds, Soft. No: Tenderness Genitourinary: No: CVA Tenderness - Left, CVA Tenderness - Right Labs: CBC, BMP 05/25/17 07:00 05/25/17 07:00 Problem List - Problems (1) Acute kidney failure Code(s): N17.9 - ACUTE KIDNEY FAILURE, UNSPECIFIED (2) Hypovolemia Code(s): E86.1 - HYPOVOLEMIA (3) Vomiting Code(s): R11.10 - VOMITING, UNSPECIFIED (4) Diarrhea Code(s): R19.7 - DIARRHEA, UNSPECIFIED (5) Diabetes mellitus Code(s): E11.9 - TYPE 2 DIABETES MELLITUS WITHOUT COMPLICATIONS (6) Proteinuria Code(s): R80.9 - PROTEINURIA, UNSPECIFIED Assessment/Plan This is a 56 y/o male, with H/o Insulin dependent Type 2 DM, admitted with protracted vomiting and diarrhea, and Significant volume depletion. Had another episode of vomiting. Acute Kidney Injury: Serum Cr has worsened since yesterday, but the rate of rise in Cr has decreased. It is likely that the Serum Creatinine will rise before staring to plateau. Proteinuria and Hypoalbuminemia. . Possibly related to Diabetic Renal disease. The patient declines use of NSAIDS. Quantitation of urinary protein is pending. PLAN: Baseline w/u as ordered. Vigorous IV hydration to continue. Serology as ordered. Renal sonogram does not show any specific findings of concern. Will hold off use of ACEI or ARB, even though they are indicated in this Diabetic Proteinuric patient, until the CARMEN is resolved. ? GI evaluation. Thanks again. Adriana Tenorio MD
[2017-05-25] MEDS ORDERED: METOCLOPRAMIDE HCL INJECTION 10 MG/2 ML VIAL IVPB ONE (11:07)
[2017-05-25] MEDS: amLODIPine BESYLATE 10 MG TABLET (FP) PO SCH (11:14)
[2017-05-25] MEDS: SODIUM CHLORIDE 1,000 ML IV SCH (11:35)
[2017-05-25 11:42] LABS: AMYLASE 23 U/L (25-125)
[2017-05-25 12:02] LABS: ANION GAP 9 (8-16); CO2 18 mmol/L (22-28)
--- NOTE | 2017-05-25 15:25 | PN ---
Physical Exam: SUBJECTIVE: Patient seen and examined, reports vomiting billious emesis and abdominal cramping OBJECTIVE: patient is a 56 year old male with a history of poorly-controlled NIDDM (HgbA1C here is 10.2%), admitted from the ED after presenting with 5 days of n/v/d. Vital Signs Period Temp Pulse Resp BP Sys/Ann Pulse Ox Last 24 Hr 70 F-99.5 F 65-70 18-20 163-166/7-84 98-100 GENERAL: The patient is awake, alert, and fully oriented, in no acute distress. HEAD: Normal with no signs of trauma. EYES: PERRL, extraocular movements intact, sclera anicteric, conjunctiva clear. No ptosis. ENT: Ears normal, nares patent, oropharynx clear without exudates, moist mucous membranes. NECK: Trachea midline, full range of motion, supple. LUNGS: Breath sounds equal, clear to auscultation bilaterally, no wheezes, no crackles, no accessory muscle use. HEART: Regular rate and rhythm, S1, S2 without murmur, rub or gallop. ABDOMEN: Soft, obese, nontender, nondistended, normoactive bowel sounds, no guarding, no rebound, no hepatosplenomegaly, no masses. EXTREMITIES: 2+ pulses, warm, well-perfused, no edema. NEUROLOGICAL: Cranial nerves II through XII grossly intact. Normal speech, gait not observed. PSYCH: Normal mood, normal affect. SKIN: Warm, dry, normal turgor, no rashes or lesions noted Laboratory Results - last 24 hr 05/24/17 05/24/17 05/25/17 10:05 21:13 05:54 WBC RBC Hgb Hct MCV MCHC RDW Plt Count MPV Neutrophils % Lymphocytes % Monocytes % Eosinophils % Basophils % Sodium Potassium Chloride Carbon Dioxide Anion Gap BUN Creatinine Creat Clearance w eGFR POC Glucometer 195 163 Random Glucose Uric Acid Calcium Magnesium Total Bilirubin AST ALT Alkaline Phosphatase Total Protein Albumin Total Amylase Lipase 36 TSH Free T4 05/25/17 05/25/17 05/25/17 07:00 07:00 07:00 WBC 9.1 RBC 3.84 L Hgb 11.8 Hct 33.8 L MCV 88.2 MCHC 34.7 RDW 11.8 L Plt Count 304 MPV 8.2 Neutrophils % 78.0 Lymphocytes % 9.2 Monocytes % 11.3 H Eosinophils % 1.0 Basophils % 0.5 Sodium 138 Potassium 4.5 Chloride 111 H Carbon Dioxide 18 L D Anion Gap 9 BUN 31 H D Creatinine 2.7 H Creat Clearance w eGFR 24.75 POC Glucometer Random Glucose 154 H Uric Acid 7.6 H Calcium 7.3 L Magnesium 2.3 Total Bilirubin 0.5 D AST 49 H ALT 37 Alkaline Phosphatase 74 Total Protein 5.0 L Albumin 1.9 L Total Amylase Lipase TSH 2.02 Free T4 1.03 05/25/17 05/25/17 07:00 11:17 WBC RBC Hgb Hct MCV MCHC RDW Plt Count MPV Neutrophils % Lymphocytes % Monocytes % Eosinophils % Basophils % Sodium Potassium Chloride Carbon Dioxide Anion Gap BUN Creatinine Creat Clearance w eGFR POC Glucometer 130 Random Glucose Uric Acid Calcium Magnesium Total Bilirubin AST ALT Alkaline Phosphatase Total Protein Albumin Total Amylase 23 L Lipase 30 TSH Free T4 Active Medications Generic Name Dose Route Start Last Admin Trade Name Freq PRN Reason Stop Dose Admin Amlodipine Besylate 10 mg 05/25/17 10:45 05/25/17 11:14 Norvasc - PO 5 mg DAILY ELSI Administration Heparin Sodium (Porcine) 5,000 unit 05/22/17 22:00 05/25/17 09:29 Heparin - SQ Not Given BID [facility] Sodium Chloride 1,000 mls @ 150 mls/hr 05/22/17 15:08 05/25/17 11:35 Normal Saline - IV 150 mls/hr ASDIR ELSI Administration Insulin Aspart 0 vial 05/22/17 16:30 05/25/17 11:18 Novolog Vial Sliding Scale - SQ Not Given ACHS [facility] Protocol Morphine Sulfate 4 mg 05/22/17 15:07 05/24/17 19:33 Morphine Injection - IVPUSH 4 mg Q4H PRN Administration PAIN Ondansetron HCl 4 mg 05/22/17 18:08 Zofran Injection IVPUSH Q6H PRN NAUSEA AND/OR VOMITING CTAP CT/ABDOMEN PELVIS CT W/ ORAL CONTRAST ONLY: Cholelithiasis and prostatic enlargement. No acute pathology within the abdomen or pelvis. Abd u/s Cholelithiasis without sonographic evidence of acute cholecystitis. No evidence of acute pancreatitis. Echogenic right kidney suspicious for medical renal disease. ECG NSR, vent rate 77, QTC 416, NO acute ST/T changes ASSESSMENT/PLAN: 56 year old male with NIDDM presenting with 5 days of n/v/d. 1. GI: n/v/d - physical exam and symptoms consistent with diabetic gastroperies start renal dose reglan achs - soft diet -pt reports he was evaluated by GI at [facility], colonscopy 2015, negative as per patientt -Continue IVF 2. Renal insufficiency, ?CARMEN-on-CKD -FENa 0.4%, consistent with pre-renal process (likely hypovolemia) - creatine 2.7 continue agressive fluid hydration -Abdominal u/s incidentally shows echogenic right kidney suspicious for medical renal disease -Renal consulted and following 3. Hyponatremia -resolved, secondary to hypovolemia -Continue hydration, follow 4. DM -Hold oral hypoglycemics while inpatient -FS q6h -ISS 5. card hypertension - increase norvasc to 10mg 6. Ppx -Sq heparin Dispo: Pt currently requires inpatient management of his emergent condition. Visit type - Emergency Visit Emergency Visit: Yes ED Registration Date: 05/22/17 Care time: The patient presented to the Emergency Department on the above date and was hospitalized for further evaluation of their emergent condition. - New Patient This patient is new to me today: No - Critical Care Critical Care patient: No - Discharge Referral Referred to [facility] Med P.C.: No
[2017-05-25] MEDS: METOCLOPRAMIDE HCL INJECTION 10 MG/2 ML VIAL IVPB SCH ×2 (18:03→21:32)
[2017-05-26] MEDS: METOCLOPRAMIDE HCL INJECTION 10 MG/2 ML VIAL IVPB SCH ×2 (07:33→21:57)
[2017-05-26 08:54] LABS: ANION GAP 9 (8-16); CALCIUM 7.5 mg/dl (8.4-10.2); CO2 19 mmol/L (22-28); CREATININE 3.4 mg/dl (0.6-1.3); GLUCOSE,RANDOM 135 mg/dl (74-106); MAGNESIUM 2.3 mg/dL (1.8-2.4); PHOSPHOROUS 3.9 mg/dl (2.5-4.6)
[2017-05-26 09:07] LABS: BASOPHIL 0.1 % (0-2.0); EOSINOPHIL 0.6 % (0-4.5); MCH 30.8 pg (25.7-33.7); MCHC 34.9 g/dl (32.0-35.9); MEAN CELL VOLUME 88.3 fl (80-96); MEAN PLT VOLUME 8.3 fl (7.5-11.1); NEUTROPHILS 82.5 % (42.8-82.8); PLATELET COUNT 345 K/MM3 (134-434); RDW 11.6 % (11.9-15.9); WHITE BLOOD COUNT 9.5 K/mm3 (4.0-10.8)
[2017-05-26] MEDS: amLODIPine BESYLATE 10 MG TABLET (FP) PO SCH (10:10)
[2017-05-26] MEDS: INSULIN SLIDING SCALE (NOVOLOG) 1 VIAL SQ SCH ×3 (11:00→21:55)
--- NOTE | 2017-05-26 11:20 | PN ---
Progress Note, Physician Chief Complaint: The patient is in bed. Claims to have vomited today also. He didn't think it was important to notify the nurse. Maintains good urine output. No muscle aches, no fever. Frothy urine ++ History of Present Illness: This is a 56 y/o male admitted with with several days of diarrhea, vomiting, weakness. The patient has a h/o Diabetes mellitus for > 20 years. The patient has tendency for Hypertension. ON Amlodipine 5 mg. - Current Medication List Current Medications: Active Medications Amlodipine Besylate (Norvasc -) 10 mg PO DAILY [facility] Last Admin: 05/26/17 10:10 Dose: 10 mg Heparin Sodium (Porcine) (Heparin -) 5,000 unit SQ BID [facility] Last Admin: 05/25/17 21:33 Dose: Not Given Sodium Chloride (Normal Saline -) 1,000 mls @ 150 mls/hr IV ASDIR [facility] Last Admin: 05/25/17 11:35 Dose: 150 mls/hr Insulin Aspart (Novolog Vial Sliding Scale -) 0 vial SQ [facility] PRN Reason: Protocol Last Admin: 05/25/17 21:32 Dose: Not Given Metoclopramide HCl (Reglan Injection -) 5 mg IVPB [facility] Last Admin: 05/26/17 07:33 Dose: 5 mg Morphine Sulfate (Morphine Injection -) 4 mg IVPUSH Q4H PRN PRN Reason: PAIN Last Admin: 05/24/17 19:33 Dose: 4 mg Ondansetron HCl (Zofran Injection) 4 mg IVPUSH Q6H PRN PRN Reason: NAUSEA AND/OR VOMITING - Objective Vital Signs: Vital Signs Temperature 98.5 F 05/26/17 06:00 Pulse Rate 73 05/26/17 06:00 Respiratory Rate 16 05/26/17 08:40 Blood Pressure 159/73 05/26/17 06:00 O2 Sat by Pulse Oximetry (%) 97 05/26/17 08:40 Constitutional: Yes: Well Nourished, No Distress, Other (very hostile.) HENT: Yes: Atraumatic Neck: Yes: Trachea Midline Cardiovascular: Yes: S1, S2 Respiratory: Yes: CTA Bilaterally Gastrointestinal: Yes: Normal Bowel Sounds, Distention. No: Tenderness, Tenderness, Epigastrium, Tenderness, Rebound Genitourinary: Yes: Other (frothy urine) Labs: CBC, BMP 05/26/17 07:30 05/26/17 07:30 Problem List - Problems (1) Acute kidney failure Code(s): N17.9 - ACUTE KIDNEY FAILURE, UNSPECIFIED (2) Hypovolemia Code(s): E86.1 - HYPOVOLEMIA (3) Vomiting Code(s): R11.10 - VOMITING, UNSPECIFIED (4) Diarrhea Code(s): R19.7 - DIARRHEA, UNSPECIFIED (5) Diabetes mellitus Code(s): E11.9 - TYPE 2 DIABETES MELLITUS WITHOUT COMPLICATIONS (6) Proteinuria Code(s): R80.9 - PROTEINURIA, UNSPECIFIED Assessment/Plan This is a 56 y/o male, with H/o Insulin dependent Type 2 DM, admitted with protracted vomiting and diarrhea, and Significant volume depletion. Acute Kidney Injury: Serum Cr has worsened again. 3.4 mg . So far no evidence of Renal recovery. Proteinuria and Hypoalbuminemia. . Possibly related to Diabetic Renal disease. The patient declines use of NSAIDS. Quantitation of urinary protein is pending. PLAN: Repeat Renal / Pelvic Sonogram. Will check Serum CPK and urine Myoglobin. Serology still pending. IV fluids to continue. ? GI evaluation. Thanks again. Adriana Tenorio MD
--- NOTE | 2017-05-26 17:10 | PN ---
Physical Exam: SUBJECTIVE: Patient seen and examined, patient is agitated, reports he is not feeling better, reports nausea and vomiting. OBJECTIVE: patient is a 56 year old male with a history of poorly-controlled NIDDM (HgbA1C here is 10.2%), admitted from the ED after presenting with 5 days of n/v/d. Vital Signs Period Temp Pulse Resp BP Sys/Ann Pulse Ox Last 24 Hr 98.5 F-99.9 F 73-79 16-20 153-181/69-73 97-99 GENERAL: The patient is awake, alert, and fully oriented, in no acute distress. HEAD: Normal with no signs of trauma. EYES: PERRL, extraocular movements intact, sclera anicteric, conjunctiva clear. No ptosis. ENT: Ears normal, nares patent, oropharynx clear without exudates, moist mucous membranes. NECK: Trachea midline, full range of motion, supple. LUNGS: Breath sounds equal, clear to auscultation bilaterally, no wheezes, no crackles, no accessory muscle use. HEART: Regular rate and rhythm, S1, S2 without murmur, rub or gallop. ABDOMEN: Soft, nontender, nondistended, normoactive bowel sounds, no guarding, no rebound, no hepatosplenomegaly, no masses. EXTREMITIES: 2+ pulses, warm, well-perfused, no edema. NEUROLOGICAL: Cranial nerves II through XII grossly intact. Normal speech, gait not observed. PSYCH: Normal mood, normal affect. SKIN: Warm, dry, normal turgor, no rashes or lesions noted Laboratory Results - last 24 hr 05/25/17 05/25/17 05/25/17 07:45 17:53 21:30 WBC RBC Hgb Hct MCV MCHC RDW Plt Count MPV Neutrophils % Lymphocytes % Monocytes % Eosinophils % Basophils % Sodium Potassium Chloride Carbon Dioxide Anion Gap BUN Creatinine POC Glucometer 136 138 Random Glucose Calcium Phosphorus Magnesium Creatine Kinase Total T3 73.00 05/26/17 05/26/17 05/26/17 07:30 07:30 10:00 WBC 9.5 RBC 4.16 Hgb 12.8 Hct 36.8 MCV 88.3 MCHC 34.9 RDW 11.6 L Plt Count 345 MPV 8.3 Neutrophils % 82.5 Lymphocytes % 7.9 L Monocytes % 8.9 Eosinophils % 0.6 Basophils % 0.1 Sodium 136 Potassium 4.3 Chloride 108 H Carbon Dioxide 19 L Anion Gap 9 BUN 39 H D Creatinine 3.4 H D POC Glucometer Random Glucose 135 H Calcium 7.5 L Phosphorus 3.9 Magnesium 2.3 Creatine Kinase 84 Total T3 Active Medications Generic Name Dose Route Start Last Admin Trade Name Freq PRN Reason Stop Dose Admin Amlodipine Besylate 10 mg 05/25/17 10:45 05/26/17 10:10 Norvasc - PO 10 mg DAILY ELSI Administration Heparin Sodium (Porcine) 5,000 unit 05/22/17 22:00 05/25/17 21:33 Heparin - SQ Not Given BID ELSI Sodium Chloride 1,000 mls @ 150 mls/hr 05/22/17 15:08 05/25/17 11:35 Normal Saline - IV 150 mls/hr ASDIR ELSI Administration Insulin Aspart 0 vial 05/22/17 16:30 05/25/17 21:32 Novolog Vial Sliding Scale - SQ Not Given ACHS [facility] Protocol Metoclopramide HCl 5 mg 05/25/17 16:30 05/26/17 07:33 Reglan Injection - IVPB 5 mg ACHS ELSI Administration Morphine Sulfate 4 mg 05/22/17 15:07 05/24/17 19:33 Morphine Injection - IVPUSH 4 mg Q4H PRN Administration PAIN Ondansetron HCl 4 mg 05/22/17 18:08 Zofran Injection IVPUSH Q6H PRN NAUSEA AND/OR VOMITING CTAP CT/ABDOMEN PELVIS CT W/ ORAL CONTRAST ONLY: Cholelithiasis and prostatic enlargement. No acute pathology within the abdomen or pelvis. Abd u/s Cholelithiasis without sonographic evidence of acute cholecystitis. No evidence of acute pancreatitis. Echogenic right kidney suspicious for medical renal disease. ECG NSR, vent rate 77, QTC 416, NO acute ST/T changes ASSESSMENT/PLAN: 56 year old male with NIDDM presenting with 5 days of n/v/d. 1. GI: n/v/d - continue reglan achs renal diet , reports ongoing nausea and vomiting, urine toxicology and stool cultures ordere -pt reports he was evaluated by GI at [facility], colonscopy 2016, negative as per patient -Continue IVF 2. Renal insufficiency, ?CARMEN-on-CKD -FENa 0.4%, consistent with pre-renal process (likely hypovolemia) - creatine 3.4 continue agressive fluid hydration -Abdominal u/s incidentally shows echogenic right kidney suspicious for medical renal disease -Renal consulted and following 3. Hyponatremia -resolved, secondary to hypovolemia -Continue hydration, follow 4. DM -Hold oral hypoglycemics while inpatient -FS q6h -ISS 5. card hypertension - continue norvasc to 10mg 6. Ppx -Sq heparin Dispo: Pt currently requires inpatient management of his emergent condition. Visit type - Emergency Visit Emergency Visit: Yes ED Registration Date: 05/22/17 Care time: The patient presented to the Emergency Department on the above date and was hospitalized for further evaluation of their emergent condition. - New Patient This patient is new to me today: No - Critical Care Critical Care patient: No - Discharge Referral Referred to [facility] Med P.C.: No
[2017-05-26 17:19] LABS: ALK PHOS 103 U/L (32-92); ANION GAP 9 (8-16); BILIRUBIN,TOTAL 0.6 mg/dl (0.2-1.0); CALCIUM 7.4 mg/dl (8.4-10.2); CO2 19 mmol/L (22-28); CREATININE 3.5 mg/dl (0.6-1.3); GLUCOSE,RANDOM 149 mg/dl (74-106); SGOT/AST 52 U/L (10-42); SGPT/ALT 38 U/L (10-40); TOT PROT 5.6 g/dl (6.4-8.3)
[2017-05-26] MEDS: FAMOTIDINE 20 MG/50 ML IVPB 50 ML IVPB SCH (21:21)
[2017-05-26] MEDS: HEPARIN NA (PORCINE) 5,000 UNITS/ML 1ML VIAL SQ SCH (21:22)
[2017-05-26] MEDS ORDERED: INSULIN (NOVOLOG) ASPART 100 UNITS/ML 10ML VIAL ONE (21:52)
[2017-05-26 23:21] LABS: URINE MARIJUANA THC NEGATIVE ng/ml (CUTOFF=50)
[2017-05-27] MEDS: amLODIPine BESYLATE 10 MG TABLET (FP) PO SCH ×2 (06:01→09:37)
[2017-05-27] MEDS: INSULIN SLIDING SCALE (NOVOLOG) 1 VIAL SQ SCH ×6 (06:30→21:20)
[2017-05-27 09:11] LABS: BASOPHIL 1.2 % (0-2.0); EOSINOPHIL 0.3 % (0-4.5); MCH 29.6 pg (25.7-33.7); MCHC 33.6 g/dl (32.0-35.9); MEAN CELL VOLUME 88.1 fl (80-96); MEAN PLT VOLUME 7.8 fl (7.5-11.1); NEUTROPHILS 85.7 % (42.8-82.8); PLATELET COUNT 424 K/MM3 (134-434); RDW 11.5 % (11.9-15.9); WHITE BLOOD COUNT 11.6 K/mm3 (4.0-10.8)
[2017-05-27 09:16] LABS: ALBUMIN 2.1 g/dl (3.5-5.0); ALK PHOS 116 U/L (32-92); ANION GAP 9 (8-16); BILIRUBIN,TOTAL 0.7 mg/dl (0.2-1.0); CALCIUM 7.6 mg/dl (8.4-10.2); CO2 15 mmol/L (22-28); CREATININE 3.4 mg/dl (0.6-1.3); GLUCOSE,RANDOM 175 mg/dl (74-106); SGOT/AST 47 U/L (10-42); SGPT/ALT 37 U/L (10-40); TOT PROT 5.8 g/dl (6.4-8.3)
[2017-05-27] MEDS: FAMOTIDINE 20 MG/50 ML IVPB 50 ML IVPB SCH (09:37)
[2017-05-27] MEDS: SODIUM CHLORIDE 1,000 ML IV SCH ×2 (09:40→09:41)
[2017-05-27] MEDS: METOCLOPRAMIDE HCL INJECTION 10 MG/2 ML VIAL IVPB SCH ×5 (09:40→21:20)
[2017-05-27] MEDS: HEPARIN NA (PORCINE) 5,000 UNITS/ML 1ML VIAL SQ SCH (09:40)
--- NOTE | 2017-05-27 09:41 | PN ---
Physical Exam: SUBJECTIVE: Patient seen and examined, patient reports several episodes of nausea, vomiting, and abdominal cramping on the overnight, patient reports 3 loose stools tmax 100.2 OBJECTIVE: patient is a 56 year old male with a history of poorly-controlled NIDDM (HgbA1C here is 10.2%), admitted from the ED after presenting with 5 days of n/v/d and elevated creatine. Vital Signs Period Temp Pulse Resp BP Sys/Ann Pulse Ox Last 24 Hr 99.0 F-100.2 F 70-82 18-20 181-216/61-81 96-99 GENERAL: The patient is awake, alert, and fully oriented, anxious. . HEAD: Normal with no signs of trauma. EYES: PERRL, extraocular movements intact, sclera anicteric, conjunctiva clear. No ptosis. ENT: Ears normal, nares patent, oropharynx clear without exudates, moist mucous membranes. NECK: Trachea midline, full range of motion, supple. LUNGS: Breath sounds equal, clear to auscultation bilaterally, no wheezes, no crackles, no accessory muscle use. HEART: Regular rate and rhythm, S1, S2 without murmur, rub or gallop. ABDOMEN: Soft, obese, nontender, nondistended, normoactive bowel sounds, no guarding, no rebound, no hepatosplenomegaly, no masses. EXTREMITIES: 2+ pulses, warm, well-perfused, no edema. NEUROLOGICAL: Cranial nerves II through XII grossly intact. Normal speech, gait not observed. PSYCH: Normal mood, normal affect. SKIN: Warm, dry, normal turgor, no rashes or lesions noted Laboratory Results - last 24 hr 05/26/17 05/26/17 05/26/17 10:00 16:50 20:30 WBC RBC Hgb Hct MCV MCHC RDW Plt Count MPV Neutrophils % Lymphocytes % Monocytes % Eosinophils % Basophils % Sodium 135 L Potassium 4.1 Chloride 107 Carbon Dioxide 19 L Anion Gap 9 BUN 41 H Creatinine 3.5 H Creat Clearance w eGFR 18.34 POC Glucometer Random Glucose 149 H Calcium 7.4 L Total Bilirubin 0.6 AST 52 H ALT 38 Alkaline Phosphatase 103 H D Creatine Kinase 84 Total Protein 5.6 L Albumin 2.0 L Opiates Screen Positive Methadone Screen Negative Barbiturate Screen Negative Phencyclidine Screen Negative Ur Amphetamines Screen Negative MDMA (Ecstasy) Screen Negative Benzodiazepines Screen Negative Cocaine Screen Negative U Marijuana (THC) Screen Negative 05/26/17 05/27/17 05/27/17 21:34 06:26 08:15 WBC 11.6 H RBC 4.56 Hgb 13.5 Hct 40.1 MCV 88.1 MCHC 33.6 RDW 11.5 L Plt Count 424 D MPV 7.8 Neutrophils % 85.7 H Lymphocytes % 7.1 L Monocytes % 5.7 Eosinophils % 0.3 Basophils % 1.2 D Sodium Potassium Chloride Carbon Dioxide Anion Gap BUN Creatinine Creat Clearance w eGFR POC Glucometer 167 141 Random Glucose Calcium Total Bilirubin AST ALT Alkaline Phosphatase Creatine Kinase Total Protein Albumin Opiates Screen Methadone Screen Barbiturate Screen Phencyclidine Screen Ur Amphetamines Screen MDMA (Ecstasy) Screen Benzodiazepines Screen Cocaine Screen U Marijuana (THC) Screen 05/27/17 08:15 WBC RBC Hgb Hct MCV MCHC RDW Plt Count MPV Neutrophils % Lymphocytes % Monocytes % Eosinophils % Basophils % Sodium 135 L Potassium 4.1 Chloride 111 H Carbon Dioxide 15 L D Anion Gap 9 BUN 42 H Creatinine 3.4 H Creat Clearance w eGFR 18.97 POC Glucometer Random Glucose 175 H Calcium 7.6 L Total Bilirubin 0.7 AST 47 H ALT 37 Alkaline Phosphatase 116 H Creatine Kinase Total Protein 5.8 L Albumin 2.1 L Opiates Screen Methadone Screen Barbiturate Screen Phencyclidine Screen Ur Amphetamines Screen MDMA (Ecstasy) Screen Benzodiazepines Screen Cocaine Screen U Marijuana (THC) Screen Active Medications Generic Name Dose Route Start Last Admin Trade Name Freq PRN Reason Stop Dose Admin Amlodipine Besylate 10 mg 05/25/17 10:45 05/27/17 09:37 Norvasc - PO 10 mg DAILY ELSI Administration Heparin Sodium (Porcine) 5,000 unit 05/22/17 22:00 05/27/17 09:40 Heparin - SQ Not Given BID ELSI Famotidine/Sodium Chloride 50 mls @ 100 mls/hr 05/26/17 22:00 05/27/17 09:37 Pepcid 20 Mg Premixed Ivpb - IVPB 100 mls/hr BID ELSI Administration Metronidazole 100 mls @ 100 mls/hr 05/27/17 10:00 Flagyl 500mg Premixed Ivpb - IVPB Q8H-IV ELSI Ceftriaxone Sodium 100 mls @ 200 mls/hr 05/27/17 10:00 Rocephin 2gm Ivpb (Pre-Docked) IVPB DAILY [facility] Insulin Aspart 0 vial 05/22/17 16:30 05/27/17 09:43 Novolog Vial Sliding Scale - SQ Not Given ACHS [facility] Protocol Labetalol HCl 200 mg 05/27/17 10:15 Normodyne - PO BID [facility] Metoclopramide HCl 5 mg 05/25/17 16:30 05/27/17 09:41 Reglan Injection - IVPB Not Given ACHS [facility] Morphine Sulfate 4 mg 05/22/17 15:07 05/24/17 19:33 Morphine Injection - IVPUSH 4 mg Q4H PRN Administration PAIN Ondansetron HCl 4 mg 05/22/17 18:08 Zofran Injection IVPUSH Q6H PRN NAUSEA AND/OR VOMITING Sodium Bicarbonate 650 mg 05/27/17 10:15 Sodium Bicarbonate - PO BID ELSI CTAP CT/ABDOMEN PELVIS CT W/ ORAL CONTRAST ONLY: Cholelithiasis and prostatic enlargement. No acute pathology within the abdomen or pelvis. Abd u/s Cholelithiasis without sonographic evidence of acute cholecystitis. No evidence of acute pancreatitis. Echogenic right kidney suspicious for medical renal disease. abd u/s (05/26) small mobile gallstones in the region of gallbladder neck, without evidence of acute choleystitis renal u/s (05/26) both kidneys are echogenic consistent with chronic medical renal disease, minimal postvoid residual ECG NSR, vent rate 77, QTC 416, NO acute ST/T changes ASSESSMENT/PLAN: 56 year old male with NIDDM presenting with 5 days of n/v/d. 1. GI: n/v/d - continue reglan achs renal diet - slight leukocytosis noted and low grade temp noted, will start empiric rocephin and flagyl - start protonix BID -pt reports he was evaluated by GI at [facility], colonscopy 2016, negative as per patient 2. Renal insufficiency, ?CARMEN-on-CKD -FENa 0.6%, consistent with pre-renal process (likely hypovolemia) - creatine 3.4, level plateaued, iv fluids d/c, pt to have renal biopsy tomorrow. -Abdominal u/s incidentally shows echogenic right kidney suspicious for medical renal disease -Renal consulted (Noel/Jamil) and following 3. Hyponatremia -resolved, secondary to hypovolemia -Continue hydration, follow 4. DM -Hold oral hypoglycemics while inpatient -FS q6h -ISS 5. card hypertension - continue norvasc to 10mg, elevated b/p noted, start labetolol - strict b/p monitoring 6. Ppx -Sq heparin Dispo: Pt currently requires inpatient management of his emergent condition. Visit type - Emergency Visit Emergency Visit: Yes ED Registration Date: 05/22/17 Care time: The patient presented to the Emergency Department on the above date and was hospitalized for further evaluation of their emergent condition. - New Patient This patient is new to me today: No - Critical Care Critical Care patient: No - Discharge Referral Referred to [facility] Med P.C.: No
[2017-05-27] MEDS ORDERED: LABETALOL HCL 200 MG TABLET (FP) PO SCH (10:15)
[2017-05-27] MEDS ORDERED: LABETALOL HCL 100 MG TABLET (FP) PO SCH (10:15)
--- NOTE | 2017-05-27 10:24 | PN ---
Progress Note (short form) - Note Progress Note: Renal Follow up for CARMEN Pt seen and examined at the bedside continues to have Nausea and not eating breakfast no abd pain makes good amt of urine as per pt no confusion, lethargy, weakness BP very high this am Vital Signs Temperature 99.0 F 05/27/17 09:34 Pulse Rate 80 05/27/17 09:34 Respiratory Rate 18 05/27/17 09:34 Blood Pressure 194/81 05/27/17 09:34 O2 Sat by Pulse Oximetry (%) 96 05/27/17 06:00 Intake & Output 05/24/17 05/25/17 05/26/17 05/27/17 23:59 23:59 23:59 23:59 Intake Total 3275 2550 1200 200 Output Total 100 Balance 3275 2550 1100 200 Gen: NAD, awake and alert CVS: RRR, No M/R Lungs CTA, no rales Abd: soft NT/ND Ext: No edema, clubbing or cyanosis : No bladder distension CBC, BMP 05/27/17 08:15 05/27/17 08:15 Current Medications Amlodipine Besylate (Norvasc -) 10 mg PO DAILY [facility] Last Admin: 05/27/17 09:37 Dose: 10 mg Heparin Sodium (Porcine) (Heparin -) 5,000 unit SQ BID [facility] Last Admin: 05/27/17 09:40 Dose: Not Given Famotidine/Sodium Chloride (Pepcid 20 Mg Premixed Ivpb -) 50 mls @ 100 mls/hr IVPB BID [facility] Last Admin: 05/27/17 09:37 Dose: 100 mls/hr Metronidazole (Flagyl 500mg Premixed Ivpb -) 100 mls @ 100 mls/hr IVPB Q8H-IV ELSI Ceftriaxone Sodium (Rocephin 2gm Ivpb (Pre-Docked)) 100 mls @ 200 mls/hr IVPB DAILY [facility] Insulin Aspart (Novolog Vial Sliding Scale -) 0 vial SQ ACHS ELSI PRN Reason: Protocol Last Admin: 05/27/17 09:43 Dose: Not Given Labetalol HCl (Normodyne -) 200 mg PO BID [facility] Metoclopramide HCl (Reglan Injection -) 5 mg IVPB ACHS [facility] Last Admin: 05/27/17 09:41 Dose: Not Given Morphine Sulfate (Morphine Injection -) 4 mg IVPUSH Q4H PRN PRN Reason: PAIN Last Admin: 05/24/17 19:33 Dose: 4 mg Ondansetron HCl (Zofran Injection) 4 mg IVPUSH Q6H PRN PRN Reason: NAUSEA AND/OR VOMITING Sodium Bicarbonate (Sodium Bicarbonate -) 650 mg PO BID ELSI A/P 56 year old Gentleman with PMhx of DM not on insulin presented wit N/V and found to have CARMEN with Cr 1.7 to 3.4 #Non Oliguirc Acute Renal Failure with Nephrotoic Range Proteinuria Renal US without obstruction, but with evidence of some possible CKD Initial FeNa was low and pt with 2+ blood w/o significant RBC but CK was WNL D/C IVF today as pt is evolemic and BP is very high Repeat urine studies including Urine Cx Check CH50, ANCAs Check Lipid profile in AM Plan for tentative Renal Biopsy tomorrow, awaiting confirmation from IR Start sodium bicarb 650mg BID Strict I an O Dose all meds for Cr Cl less then 20 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
[2017-05-27] MEDS: CEFTRIAXONE 100 ML IVPB SCH (10:25)
[2017-05-27] MEDS: METRONIDAZOLE 500 MG PREMIXED 100 ML IVPB SCH ×2 (10:49→17:28)
[2017-05-27] MEDS: SODIUM BICARBONATE 650 MG TABLET PO SCH ×2 (10:49→21:20)
[2017-05-27] MEDS: PANTOPRAZOLE SODIUM 100 ML IVPB SCH ×2 (10:49→22:15)
[2017-05-27 12:56] LABS: URINE CREATININE 122.7 mg/dL (20-370)
[2017-05-27] MEDS ORDERED: LABETALOL HCL 100 MG TABLET (FP) PO ONE (15:00)
[2017-05-27] MEDS ORDERED: INSULIN (NOVOLOG) ASPART 100 UNITS/ML 10ML VIAL ONE (21:13)
[2017-05-28 00:06] LABS: A/G RATIO 0.7 (0.7-1.7); ALBUMIN 2.1 g/dL (2.9-4.4); M-SPIKE Not Observed g/dL (Not Observed); TOTAL PROTEIN 5.1 g/dL (6.0-8.5)
[2017-05-28] MEDS: METRONIDAZOLE 500 MG PREMIXED 100 ML IVPB SCH ×3 (02:13→19:30)
[2017-05-28] MEDS: INSULIN SLIDING SCALE (NOVOLOG) 1 VIAL SQ SCH ×3 (06:41→20:15)
[2017-05-28 08:10] LABS: BASOPHIL 0.7 % (0-2.0); EOSINOPHIL 1.6 % (0-4.5); MCH 29.9 pg (25.7-33.7); MEAN CELL VOLUME 87.9 fl (80-96); MEAN PLT VOLUME 7.8 fl (7.5-11.1); NEUTROPHILS 79.3 % (42.8-82.8); PLATELET COUNT 375 K/MM3 (134-434); RDW 11.6 % (11.9-15.9); WHITE BLOOD COUNT 10.5 K/mm3 (4.0-10.8)
[2017-05-28] MEDS ORDERED: LABETALOL HCL 100 MG TABLET (FP) ONE (08:20)
[2017-05-28] MEDS ORDERED: LABETALOL HCL 200 MG TABLET (FP) PO SCH ×2 (08:30→10:15)
[2017-05-28 08:33] LABS: ALBUMIN 1.8 g/dl (3.5-5.0); ALK PHOS 92 U/L (32-92); ANION GAP 8 (8-16); BILIRUBIN,TOTAL 0.5 mg/dl (0.2-1.0); CALCIUM 7.6 mg/dl (8.4-10.2); CHOLESTEROL 197 mg/dl; CO2 18 mmol/L (22-28); CREATININE 3.6 mg/dl (0.6-1.3); GLUCOSE,RANDOM 171 mg/dl (74-106); MAGNESIUM 2.2 mg/dL (1.8-2.4); SGOT/AST 28 U/L (10-42); SGPT/ALT 26 U/L (10-40)
[2017-05-28] MEDS: NIFEdipine E.R. 30 MG TABLET (FP) PO SCH ×3 (08:35→21:24)
[2017-05-28] MEDS: LABETALOL HCL 100 MG TABLET (FP) PO SCH ×3 (08:35→21:24)
[2017-05-28] MEDS: METOCLOPRAMIDE HCL INJECTION 10 MG/2 ML VIAL IVPB SCH ×3 (08:37→21:24)
[2017-05-28] MEDS ORDERED: DEXTROSE 5%-0.45% SALINE 1,000 ML IV SCH (09:45)
[2017-05-28] MEDS: PANTOPRAZOLE SODIUM 100 ML IVPB SCH ×2 (10:00→21:24)
--- NOTE | 2017-05-28 10:10 | PN ---
Progress Note (short form) - Note Progress Note: Renal Follow up for CARMEN Pt seen and examined at the bedside reports that the Nausea has improved but still has poor apetite and had emesis x 1 yesterday denies any sob, chest pain currently NPO for renal biopsy today Vital Signs Temperature 98.8 F 05/28/17 06:00 Pulse Rate 76 05/28/17 06:00 Respiratory Rate 20 05/28/17 06:00 Blood Pressure 174/80 05/28/17 06:00 O2 Sat by Pulse Oximetry (%) 98 05/28/17 06:00 Gen: NAD, awake and alert CVS: RRR, No M/R Lungs CTA, no rales Abd: soft NT/ND Ext: trace edema in the LE CBC, BMP 05/28/17 07:40 05/28/17 07:40 Laboratory Tests 05/23/17 05/27/17 01:40 12:15 Urine Protein 742 U Random Total Protein 483 H Ur Random Sodium 19 L Urine Creatinine 122.7 Current Medications Metronidazole (Flagyl 500mg Premixed Ivpb -) 100 mls @ 100 mls/hr IVPB Q8H-IV [facility] Last Admin: 05/28/17 02:13 Dose: 100 mls/hr Ceftriaxone Sodium (Rocephin 2gm Ivpb (Pre-Docked)) 100 mls @ 200 mls/hr IVPB DAILY [facility] Last Admin: 05/27/17 10:25 Dose: 200 mls/hr Pantoprazole Sodium (Protonix 40mg Ivpb (Pre-Docked)) 100 mls @ 200 mls/hr IVPB BID ELSI Last Admin: 05/27/17 22:15 Dose: 200 mls/hr Dextrose/Sodium Chloride (D5-1/2ns -) 1,000 mls @ 60 mls/hr IV ASDIR ELSI Insulin Aspart (Novolog Vial Sliding Scale -) 0 vial SQ ACHS ELSI PRN Reason: Protocol Last Admin: 05/28/17 06:41 Dose: Not Given Labetalol HCl (Normodyne -) 400 mg PO BID [facility]SI Last Admin: 05/28/17 08:35 Dose: 400 mg Metoclopramide HCl (Reglan Injection -) 5 mg IVPB ACHS [facility] Last Admin: 05/28/17 08:37 Dose: Not Given Morphine Sulfate (Morphine Injection -) 4 mg IVPUSH Q4H PRN PRN Reason: PAIN Last Admin: 05/24/17 19:33 Dose: 4 mg Nifedipine (Procardia Xl -) 30 mg PO DAILY [facility]SI Last Admin: 05/28/17 08:35 Dose: 30 mg Ondansetron HCl (Zofran Injection) 4 mg IVPUSH Q6H PRN PRN Reason: NAUSEA AND/OR VOMITING Sodium Bicarbonate (Sodium Bicarbonate -) 650 mg PO BID [facility]SI Last Admin: 05/27/17 21:20 Dose: 650 mg A/P 56 year old Gentleman with PMhx of DM not on insulin presented wit N/V and found to have CARMEN with Cr 1.7 to 3.4 #Non Oliguirc Acute Renal Failure with Nephrotoic Range Proteinuria BUN/Cr continue to trend up despite hydration Repeat urine studies show FeNa of 0.39% that indicate preserved tubular function repeat UPCR is 3.9 CH50, ANCA levels collected. Added C3/C4 to AM labs Will get Doppler of the renal veins to r/o thrombosis For Renal Biopsy today Start D5 1/2 NS at 60 cc per hour strict I and O dose all meds for Cr Cl less then 60 no acute indication for REGIONAL DIRECTOR #Uncontrolled Hypertension Increase Labetalol to 400mg Q12hd and Start Procardia 30mg Daily #Nausea/Fever Work up and management as per primary Justin Cohen DO
[2017-05-28] MEDS: SODIUM BICARBONATE 650 MG TABLET PO SCH ×2 (10:12→21:24)
[2017-05-28 10:20] LABS: INR 0.96 (0.82-1.09); PROTHROMBIN TIME (PATIENT) 10.8 SEC (10.2-13.0)
[2017-05-28] MEDS: CEFTRIAXONE 100 ML IVPB SCH (10:22)
--- NOTE | 2017-05-28 10:26 | PN ---
Physical Exam: SUBJECTIVE: Patient seen and examined, patient reports feeling better, denies any nausea, patient denies any abdominal pain OBJECTIVE: patient is a 56 year old male with a history of poorly-controlled NIDDM (HgbA1C here is 10.2%), admitted from the ED after presenting with 5 days of n/v/d and elevated creatine. Vital Signs Period Temp Pulse Resp BP Sys/Ann Pulse Ox Last 24 Hr 97.4 F-98.8 F 73-81 16-20 143-183/73-80 96-98 GENERAL: The patient is awake, alert, and fully oriented, in no acute distress. HEAD: Normal with no signs of trauma. EYES: PERRL, extraocular movements intact, sclera anicteric, conjunctiva clear. No ptosis. ENT: Ears normal, nares patent, oropharynx clear without exudates, moist mucous membranes. NECK: Trachea midline, full range of motion, supple. LUNGS: Breath sounds equal, clear to auscultation bilaterally, no wheezes, no crackles, no accessory muscle use. HEART: Regular rate and rhythm, S1, S2 without murmur, rub or gallop. ABDOMEN: Soft, nontender, nondistended, normoactive bowel sounds, no guarding, no rebound, no hepatosplenomegaly, no masses. EXTREMITIES: 2+ pulses, warm, well-perfused, + 1 lowere extremity edema. NEUROLOGICAL: Cranial nerves II through XII grossly intact. Normal speech, gait not observed. PSYCH: Normal mood, normal affect. SKIN: Warm, dry, normal turgor, no rashes or lesions noted Laboratory Results - last 24 hr 05/25/17 05/25/17 05/27/17 07:00 07:45 08:15 WBC RBC Hgb Hct MCV MCHC RDW Plt Count MPV Neutrophils % Lymphocytes % Monocytes % Eosinophils % Basophils % ESR 125 H Sodium Potassium Chloride Carbon Dioxide Anion Gap BUN Creatinine Creat Clearance w eGFR POC Glucometer Random Glucose Calcium Magnesium Total Bilirubin AST ALT Alkaline Phosphatase Prot Electrophoresis Serum Total Protein 5.1 L Total Protein Albumin 2.1 L Globulin 3.0 Albumin/Globulin Ratio 0.7 Keceh-2-Wmdokpfue 0.3 Orsuf-8-Robcwmzyt 1.2 H Beta Globulins 0.8 Gamma Globulins 0.8 Triglycerides Cholesterol Total LDL Cholesterol HDL Cholesterol Total T3 73.00 U Random Total Protein Ur Random Sodium Urine Creatinine SEKOU M-David Not observed SHAE Screen Negative 05/27/17 05/27/17 05/28/17 12:15 21:08 06:09 WBC RBC Hgb Hct MCV MCHC RDW Plt Count MPV Neutrophils % Lymphocytes % Monocytes % Eosinophils % Basophils % ESR Sodium Potassium Chloride Carbon Dioxide Anion Gap BUN Creatinine Creat Clearance w eGFR POC Glucometer 184 147 Random Glucose Calcium Magnesium Total Bilirubin AST ALT Alkaline Phosphatase Prot Electrophoresis Serum Total Protein Total Protein Albumin Globulin Albumin/Globulin Ratio Xqlun-0-Zndbqlqxk Nqfak-2-Ybcufwind Beta Globulins Gamma Globulins Triglycerides Cholesterol Total LDL Cholesterol HDL Cholesterol Total T3 U Random Total Protein 483 H Ur Random Sodium 19 L Urine Creatinine 122.7 SEKOU M-David SHAE Screen 05/28/17 05/28/17 07:40 07:40 WBC 10.5 RBC 4.23 Hgb 12.6 Hct 37.2 MCV 87.9 MCHC 34.0 RDW 11.6 L Plt Count 375 MPV 7.8 Neutrophils % 79.3 Lymphocytes % 9.9 D Monocytes % 8.5 Eosinophils % 1.6 D Basophils % 0.7 ESR Sodium 137 Potassium 4.0 Chloride 111 H Carbon Dioxide 18 L Anion Gap 8 BUN 47 H Creatinine 3.6 H Creat Clearance w eGFR 17.76 POC Glucometer Random Glucose 171 H Calcium 7.6 L Magnesium 2.2 Total Bilirubin 0.5 D AST 28 D ALT 26 D Alkaline Phosphatase 92 D Prot Electrophoresis Serum Total Protein Total Protein 5.0 L Albumin 1.8 L Globulin Albumin/Globulin Ratio Ltchb-8-Chfhfkizv Usrgb-1-Junwwzkox Beta Globulins Gamma Globulins Triglycerides 187 H D Cholesterol 197 Total LDL Cholesterol 137 HDL Cholesterol 23 L Total T3 U Random Total Protein Ur Random Sodium Urine Creatinine SEKOU M-David SHAE Screen Active Medications Generic Name Dose Route Start Last Admin Trade Name Freq PRN Reason Stop Dose Admin Metronidazole 100 mls @ 100 mls/hr 05/27/17 10:00 05/28/17 02:13 Flagyl 500mg Premixed Ivpb - IVPB 100 mls/hr Q8H-IV ELSI Administration Ceftriaxone Sodium 100 mls @ 200 mls/hr 05/27/17 10:00 05/27/17 10:25 Rocephin 2gm Ivpb (Pre-Docked) IVPB 200 mls/hr DAILY ELSI Administration Pantoprazole Sodium 100 mls @ 200 mls/hr 05/27/17 10:45 05/28/17 10:00 Protonix 40mg Ivpb (Pre-Docked) IVPB 200 mls/hr BID ELSI Administration Dextrose/Sodium Chloride 1,000 mls @ 60 mls/hr 05/28/17 09:45 05/28/17 10:00 D5-1/2ns - IV 60 mls/hr ASDIR ELSI Administration Insulin Aspart 0 vial 05/22/17 16:30 05/28/17 06:41 Novolog Vial Sliding Scale - SQ Not Given ACHS [facility] Protocol Labetalol HCl 400 mg 05/28/17 08:30 05/28/17 10:12 Normodyne - PO Not Given BID [facility] Metoclopramide HCl 5 mg 05/25/17 16:30 05/28/17 08:37 Reglan Injection - IVPB Not Given ACHS [facility] Morphine Sulfate 4 mg 05/22/17 15:07 05/24/17 19:33 Morphine Injection - IVPUSH 4 mg Q4H PRN Administration PAIN Nifedipine 30 mg 05/28/17 08:30 05/28/17 10:07 Procardia Xl - PO Not Given DAILY [facility] Ondansetron HCl 4 mg 05/22/17 18:08 Zofran Injection IVPUSH Q6H PRN NAUSEA AND/OR VOMITING Sodium Bicarbonate 650 mg 05/27/17 10:30 05/28/17 10:12 Sodium Bicarbonate - PO Not Given BID [facility] CTAP CT/ABDOMEN PELVIS CT W/ ORAL CONTRAST ONLY: Cholelithiasis and prostatic enlargement. No acute pathology within the abdomen or pelvis. Abd u/s Cholelithiasis without sonographic evidence of acute cholecystitis. No evidence of acute pancreatitis. Echogenic right kidney suspicious for medical renal disease. abd u/s (05/26) small mobile gallstones in the region of gallbladder neck, without evidence of acute choleystitis renal u/s (05/26) both kidneys are echogenic consistent with chronic medical renal disease, minimal postvoid residual ECG NSR, vent rate 77, QTC 416, NO acute ST/T changes ASSESSMENT/PLAN: 56 year old male with NIDDM presenting with 5 days of n/v/d. 1. GI: n/v/d - pt reports improvement of nausea, reglan achs renal diet - continue flagyl and rocephin, pt afebrile no leukocytosis noted - continue protonix BID -pt reports he was evaluated by GI at [facility], colonscopy 2016, negative as per patient 2. Renal insufficiency, ?CARMEN-on-CKD -FENa 0.4%, consistent with pre-renal process archana secondary to renal artery stenosis vs hypovolemia - creatine 3.6, pending renal biopsy today, pending doppler of renal artery -Abdominal u/s incidentally shows echogenic right kidney suspicious for medical renal disease -Renal consulted (Noel/Jamil) and following 3. Hyponatremia -resolved, secondary to hypovolemia -Continue hydration, follow serum sodium 4. DM -Hold oral hypoglycemics while inpatient -FS q6h -ISS 5. card hypertension - b/p remains elevated increase labetolol to 400mg bid and start procardia 30mg qd - pending echo - strict b/p monitoring - appreciate input of cardiology 6. Ppx -Sq heparin Dispo: Pt currently requires inpatient management of his emergent condition. Visit type - Emergency Visit Emergency Visit: Yes ED Registration Date: 05/22/17 Care time: The patient presented to the Emergency Department on the above date and was hospitalized for further evaluation of their emergent condition. - New Patient This patient is new to me today: No - Critical Care Critical Care patient: No - Discharge Referral Referred to [facility] Med P.C.: No
--- NOTE | 2017-05-28 17:45 | CON.CARD ---
Cardiology Consult (text) - Consultation Consultation Note: CC: htn 56 yo with h/o poorly controlled NIDDM p/w nausea, vomiting and diarrhea, hospital course c/b worsening renal failure and htn. Initially noted to have elevated lipase which quickly normalized. Worsening renal failure despite IVF. s/p renal bx today. denies prior h/o htn. + le edema noted today. no cp, sob, palps, dizziness, orthopnea, pnd, bleeding, claudiacation, transient neurologic symptoms. + h/a, + generalized malaise no f/c/s, cough, congestion, rashes, visual disturbances. PAST MEDICAL HISTORY: per hpi PAST SURGICAL HISTORY: denies Social History: Smoking: former smoker Alcohol: very occasionally, last drink one month ago. Denies binge drinking Drugs: pt denies Family History: mother age 62, in her sleep father age 75, CVAx2 ros: per hpi Ambulatory Orders Glipizide [Glucotrol] 5 mg PO BID 05/22/17 Metformin HCl [Metformin HCl ER] 500 mg PO BID 05/22/17 Current Medications Metronidazole (Flagyl 500mg Premixed Ivpb -) 100 mls @ 100 mls/hr IVPB Q8H-IV [facility] Last Admin: 05/28/17 10:43 Dose: 100 mls/hr Ceftriaxone Sodium (Rocephin 2gm Ivpb (Pre-Docked)) 100 mls @ 200 mls/hr IVPB DAILY [facility] Last Admin: 05/28/17 10:22 Dose: 200 mls/hr Pantoprazole Sodium (Protonix 40mg Ivpb (Pre-Docked)) 100 mls @ 200 mls/hr IVPB BID [facility] Last Admin: 05/28/17 10:00 Dose: 200 mls/hr Dextrose/Sodium Chloride (D5-1/2ns -) 1,000 mls @ 60 mls/hr IV ASDIR [facility] Last Admin: 05/28/17 10:00 Dose: 60 mls/hr Insulin Aspart (Novolog Vial Sliding Scale -) 0 vial SQ ACHS ELSI PRN Reason: Protocol Last Admin: 05/28/17 06:41 Dose: Not Given Labetalol HCl (Normodyne -) 400 mg PO BID [facility] Last Admin: 05/28/17 10:12 Dose: Not Given Lactobacillus Acidophilus (Bacid -) 1 tab PO DAILY [facility] Metoclopramide HCl (Reglan Injection -) 5 mg IVPB ACHS [facility] Last Admin: 05/28/17 08:37 Dose: Not Given Morphine Sulfate (Morphine Injection -) 4 mg IVPUSH Q4H PRN PRN Reason: PAIN Last Admin: 05/24/17 19:33 Dose: 4 mg Nifedipine (Procardia Xl -) 30 mg PO DAILY [facility] Last Admin: 05/28/17 10:07 Dose: Not Given Ondansetron HCl (Zofran Injection) 4 mg IVPUSH Q6H PRN PRN Reason: NAUSEA AND/OR VOMITING Sodium Bicarbonate (Sodium Bicarbonate -) 650 mg PO BID [facility] Last Admin: 05/28/17 10:12 Dose: Not Given Vital Signs - 24 hr 05/27/17 05/27/17 05/27/17 18:00 20:42 22:00 Temperature 97.4 F L 98.8 F Pulse Rate 78 73 Pulse Rate [ Right Lower Arm ] Respiratory 19 18 20 Rate Respiratory Rate [Right Lower Arm] Blood Pressure 167/80 143/75 Blood Pressure [Right Lower Arm] O2 Sat by Pulse 98 98 98 Oximetry (%) O2 Sat by Pulse Oximetry (%) [ Right Lower Arm ] 05/28/17 05/28/17 05/28/17 06:00 10:14 12:12 Temperature 98.8 F 98 F 97.7 F Pulse Rate 76 73 98 H Pulse Rate [ Right Lower Arm ] Respiratory 20 18 16 Rate Respiratory Rate [Right Lower Arm] Blood Pressure 174/80 150/78 152/77 Blood Pressure [Right Lower Arm] O2 Sat by Pulse 98 Oximetry (%) O2 Sat by Pulse Oximetry (%) [ Right Lower Arm ] 05/28/17 05/28/17 05/28/17 13:27 13:28 13:38 Temperature Pulse Rate 68 Pulse Rate [ 71 75 Right Lower Arm ] Respiratory 24 Rate Respiratory 23 21 Rate [Right Lower Arm] Blood Pressure 164/100 Blood Pressure 164/100 163/100 [Right Lower Arm] O2 Sat by Pulse 99 Oximetry (%) O2 Sat by Pulse 98 98 Oximetry (%) [ Right Lower Arm ] 05/28/17 05/28/17 05/28/17 13:47 14:15 14:45 Temperature Pulse Rate 74 70 74 Pulse Rate [ Right Lower Arm ] Respiratory 19 16 16 Rate Respiratory Rate [Right Lower Arm] Blood Pressure 168/98 143/83 153/77 Blood Pressure [Right Lower Arm] O2 Sat by Pulse 98 95 96 Oximetry (%) O2 Sat by Pulse Oximetry (%) [ Right Lower Arm ] 05/28/17 05/28/17 05/28/17 15:00 15:30 16:00 Temperature Pulse Rate 68 71 68 Pulse Rate [ Right Lower Arm ] Respiratory 14 16 68 H Rate Respiratory Rate [Right Lower Arm] Blood Pressure 150/79 142/78 143/78 Blood Pressure [Right Lower Arm] O2 Sat by Pulse 96 97 97 Oximetry (%) O2 Sat by Pulse Oximetry (%) [ Right Lower Arm ] 05/28/17 16:30 Temperature Pulse Rate 75 Pulse Rate [ Right Lower Arm ] Respiratory 14 Rate Respiratory Rate [Right Lower Arm] Blood Pressure 148/78 Blood Pressure [Right Lower Arm] O2 Sat by Pulse 96 Oximetry (%) O2 Sat by Pulse Oximetry (%) [ Right Lower Arm ] Intake & Output 05/26/17 05/27/17 05/28/17 05/29/17 07:59 07:59 07:59 07:59 Intake Total 500 1200 2375 Output Total 100 Balance 500 1100 2375 nad, calm jvd flat, neck supple ctab, nl effort rrr nl s1, s2 no mrg + bs soft nt nd ext with trace edema. no cyanosis or clubbing no carotid bruits no jaundice, diaphoresis aaox3 CBC, BMP 05/28/17 07:40 05/28/17 07:40 Laboratory Tests 05/22/17 05/22/17 05/23/17 11:37 14:15 07:00 ESR Hemoglobin A1c % 10.2 H Total Bilirubin AST ALT Alkaline Phosphatase Albumin Triglycerides Cholesterol Total LDL Cholesterol HDL Cholesterol Lipase 342 H TSH Urine Protein 3+ H 05/23/17 05/25/17 05/27/17 07:00 07:00 08:15 ESR 125 H Hemoglobin A1c % Total Bilirubin AST ALT Alkaline Phosphatase Albumin Triglycerides Cholesterol Total LDL Cholesterol HDL Cholesterol Lipase 45 TSH 2.02 Urine Protein 05/28/17 07:40 ESR Hemoglobin A1c % Total Bilirubin 0.5 D AST 28 D ALT 26 D Alkaline Phosphatase 92 D Albumin 1.8 L Triglycerides 187 H D Cholesterol 197 Total LDL Cholesterol 137 HDL Cholesterol 23 L Lipase TSH Urine Protein ekg: sr. anterior q waves echo pending 56 yo with h/o poorly controlled NIDDM p/w nausea, vomiting and diarrhea, hospital course c/b worsening renal failure and htn. htn - started on anti-hypertensives here. labetolol uptitrated and norvasc changed to nifedipine today with improvement. Still remains in the 140's. will uptitrate nifedipine to bid dosing. - echo pending. - based on CV risk would benefit from ASA, statin. Would start asa when ok per renal (s/p renal bx). Can defer statin until acute issues resolve. - daily weights, i/o's. Renal failure with proteinuria - per renal, pmd DM - per pmd
[2017-05-28] MEDS ORDERED: INSULIN (NOVOLOG) ASPART 100 UNITS/ML 10ML VIAL ONE (19:56)
[2017-05-29] MEDS: METRONIDAZOLE 500 MG PREMIXED 100 ML IVPB SCH ×2 (02:31→10:05)
[2017-05-29] MEDS: METOCLOPRAMIDE HCL INJECTION 10 MG/2 ML VIAL IVPB SCH ×2 (06:24→12:05)
[2017-05-29] MEDS: INSULIN SLIDING SCALE (NOVOLOG) 1 VIAL SQ SCH ×4 (06:24→22:40)
[2017-05-29 08:52] LABS: ANION GAP 7 (8-16); CALCIUM 7.9 mg/dl (8.4-10.2); CO2 17 mmol/L (22-28); CREATININE 3.6 mg/dl (0.6-1.3); GLUCOSE,RANDOM 207 mg/dl (74-106)
--- NOTE | 2017-05-29 09:01 | PN ---
Physical Exam: SUBJECTIVE: Patient seen and examined, reports decreased nausea and reports feeling swollen OBJECTIVE: patient is a 56 year old male with a history of poorly-controlled NIDDM (HgbA1C here is 10.2%), admitted from the ED after presenting with 5 days of n/v/d and elevated creatine. Vital Signs Period Temp Pulse Resp BP Sys/Ann Pulse Ox Last 24 Hr 97.7 F-98.6 F 68-98 14-68 142-168/76-100 95-99 GENERAL: The patient is awake, alert, and fully oriented, in no acute distress. HEAD: Normal with no signs of trauma. EYES: PERRL, extraocular movements intact, sclera anicteric, conjunctiva clear. No ptosis. ENT: Ears normal, nares patent, oropharynx clear without exudates, moist mucous membranes. NECK: Trachea midline, full range of motion, supple. LUNGS: Breath sounds equal, clear to auscultation bilaterally, no wheezes, no crackles, no accessory muscle use. HEART: Regular rate and rhythm, S1, S2 without murmur, rub or gallop. ABDOMEN: Soft, nontender, nondistended, normoactive bowel sounds, no guarding, no rebound, no hepatosplenomegaly, no masses. EXTREMITIES: 2+ pulses, warm, well-perfused, + 1 lowere extremity edema. NEUROLOGICAL: Cranial nerves II through XII grossly intact. Normal speech, gait not observed. PSYCH: Normal mood, normal affect. SKIN: Warm, dry, normal turgor, no rashes or lesions noted Laboratory Results - last 24 hr 05/26/17 05/27/17 05/28/17 20:30 12:10 07:40 INR POC Glucometer Phosphorus 4.4 Urine Myoglobin <2 Tot Complement (CH50) > 65 H 05/28/17 05/28/17 05/28/17 08:30 17:06 19:53 INR 0.96 L POC Glucometer 225 277 Phosphorus Urine Myoglobin Tot Complement (CH50) 05/29/17 06:18 INR POC Glucometer 218 Phosphorus Urine Myoglobin Tot Complement (CH50) CBC WBC 10.5 K/mm3 (4.0-10.8) 05/28/17 07:40 RBC 4.23 M/mm3 (4.00-5.60) 05/28/17 07:40 Hgb 12.6 GM/dl (11.7-16.9) 05/28/17 07:40 Hct 37.2 % (35.4-49) 05/28/17 07:40 MCV 87.9 fl (80-96) 05/28/17 07:40 MCHC 34.0 g/dl (32.0-35.9) 05/28/17 07:40 RDW 11.6 % (11.9-15.9) L 05/28/17 07:40 Plt Count 375 K/MM3 (134-434) 05/28/17 07:40 MPV 7.8 fl (7.5-11.1) 05/28/17 07:40 Neutrophils % 79.3 % (42.8-82.8) 05/28/17 07:40 Lymphocytes % 9.9 % (8-40) D 05/28/17 07:40 Monocytes % 8.5 % (3.8-10.2) 05/28/17 07:40 Eosinophils % 1.6 % (0-4.5) D 05/28/17 07:40 Basophils % 0.7 % (0-2.0) 05/28/17 07:40 ESR 125 mm/hr (0-20) H 05/27/17 08:15 CMP Sodium 136 mmol/L (136-145) 05/29/17 07:00 Potassium 4.2 mmol/L (3.5-5.1) 05/29/17 07:00 Chloride 112 mmol/L (98-107) H 05/29/17 07:00 Carbon Dioxide 17 mmol/L (22-28) L 05/29/17 07:00 Anion Gap 7 (8-16) L 05/29/17 07:00 BUN 50 mg/dl (7-18) H 05/29/17 07:00 Creatinine 3.6 mg/dl (0.6-1.3) H 05/29/17 07:00 Creat Clearance w eGFR 17.76 (>60) 05/28/17 07:40 POC Glucometer 185 UNITS (()) 05/29/17 12:05 Random Glucose 207 mg/dl (74-106) H D 05/29/17 07:00 Hemoglobin A1c % 10.2 % (4.8-6.0) H 05/23/17 07:00 Uric Acid 7.6 mg/dl (2.6-7.2) H 05/25/17 07:00 Calcium 7.9 mg/dl (8.4-10.2) L 05/29/17 07:00 Phosphorus 4.4 mg/dl (2.5-4.6) 05/28/17 07:40 Magnesium 2.2 mg/dL (1.8-2.4) 05/28/17 07:40 Total Bilirubin 0.5 mg/dl (0.2-1.0) D 05/28/17 07:40 AST 28 U/L (10-42) D 05/28/17 07:40 ALT 26 U/L (10-40) D 05/28/17 07:40 Alkaline Phosphatase 92 U/L (32-92) D 05/28/17 07:40 LD Total 371 U/L (91-180) H 05/22/17 15:06 Creatine Kinase 84 IU/L (38-174) 05/26/17 10:00 Prot Electrophoresis (.) 05/25/17 07:00 Serum Total Protein 5.1 g/dL (6.0-8.5) L 05/25/17 07:00 Total Protein 5.0 g/dl (6.4-8.3) L 05/28/17 07:40 Albumin 1.8 g/dl (3.5-5.0) L 05/28/17 07:40 Globulin 3.0 g/dL (2.2-3.9) 05/25/17 07:00 Albumin/Globulin Ratio 0.7 (0.7-1.7) 05/25/17 07:00 Yudse-3-Jalusmanw 0.3 gm/dL (0.0-0.4) 05/25/17 07:00 Fqkre-8-Yevrlcuzz 1.2 gm/dL (0.4-1.0) H 05/25/17 07:00 Beta Globulins 0.8 gm/dL (0.7-1.3) 05/25/17 07:00 Gamma Globulins 0.8 gm/dL (0.4-1.8) 05/25/17 07:00 Triglycerides 187 mg/dl (35-160) H D 05/28/17 07:40 Cholesterol 197 mg/dl 05/28/17 07:40 Total LDL Cholesterol 137 mg/dl 05/28/17 07:40 HDL Cholesterol 23 mg/dl (29-89) L 05/28/17 07:40 Total Amylase 23 U/L (25-125) L 05/25/17 07:00 Lipase 30 U/L (22-51) 05/25/17 07:00 TSH 2.02 uIU/ml (0.358-3.74) 05/25/17 07:00 Free T4 1.03 ng/dl (0.76-1.16) 05/25/17 07:00 Total T3 73.00 ng/dl (71-180) 05/25/17 07:45 Active Medications Generic Name Dose Route Start Last Admin Trade Name Freq PRN Reason Stop Dose Admin Metronidazole 100 mls @ 100 mls/hr 05/27/17 10:00 05/29/17 02:31 Flagyl 500mg Premixed Ivpb - IVPB 100 mls/hr Q8H-IV ELSI Administration Ceftriaxone Sodium 100 mls @ 200 mls/hr 05/27/17 10:00 05/28/17 10:22 Rocephin 2gm Ivpb (Pre-Docked) IVPB 200 mls/hr DAILY ELSI Administration Pantoprazole Sodium 100 mls @ 200 mls/hr 05/27/17 10:45 05/28/17 21:24 Protonix 40mg Ivpb (Pre-Docked) IVPB 200 mls/hr BID ELSI Administration Insulin Aspart 0 vial 05/22/17 16:30 05/29/17 06:24 Novolog Vial Sliding Scale - SQ 4 units ACHS ELSI Administration Protocol Labetalol HCl 400 mg 05/28/17 08:30 05/28/17 21:24 Normodyne - PO 400 mg BID ELSI Administration Lactobacillus Acidophilus 1 tab 05/29/17 10:00 Bacid - PO DAILY ELSI Metoclopramide HCl 5 mg 05/25/17 16:30 05/29/17 06:24 Reglan Injection - IVPB 5 mg ACHS ELSI Administration Morphine Sulfate 4 mg 05/22/17 15:07 05/24/17 19:33 Morphine Injection - IVPUSH 4 mg Q4H PRN Administration PAIN Nifedipine 30 mg 05/28/17 22:00 05/28/17 21:24 Procardia Xl - PO 30 mg BID ELSI Administration Ondansetron HCl 4 mg 05/22/17 18:08 Zofran Injection IVPUSH Q6H PRN NAUSEA AND/OR VOMITING Sodium Bicarbonate 650 mg 05/27/17 10:30 05/28/17 21:24 Sodium Bicarbonate - PO 650 mg BID ELSI Administration Microbiology 05/27/17 18:40 Urine - Urine Clean Catch Urine Culture - Final NO GROWTH OBTAINED CTAP CT/ABDOMEN PELVIS CT W/ ORAL CONTRAST ONLY: Cholelithiasis and prostatic enlargement. No acute pathology within the abdomen or pelvis. Abd u/s Cholelithiasis without sonographic evidence of acute cholecystitis. No evidence of acute pancreatitis. Echogenic right kidney suspicious for medical renal disease. abd u/s (05/26) small mobile gallstones in the region of gallbladder neck, without evidence of acute choleystitis renal u/s (05/26) both kidneys are echogenic consistent with chronic medical renal disease, minimal postvoid residual ECG NSR, vent rate 77, QTC 416, NO acute ST/T changes ASSESSMENT/PLAN: 56 year old male with NIDDM presenting with 5 days of n/v/d. 1. GI: n/v/d - pt reports improvement of nausea, - pt declines, iv abx, pt does report he was incarcerated and was released from group home on 01/09, he notes when he was in group home many inmates were diagnosed with hyplori, start amoxicillin and flagyl, renal dosed, pt is pending tetracyline. - continue protonix BID -pt reports he was evaluated by GI at [facility], colonscopy 2015, negative as per patient 2. Renal insufficiency, ?CARMEN-on-CKD -FENa 0.4%, consistent with pre-renal process likely secondary to renal artery stenosis vs hypovolemia - creatine 3.6, renal biopsy completed 05/28/17, pending results -Abdominal u/s incidentally shows echogenic right kidney suspicious for medical renal disease -Renal consulted (Noel/Jamil) and following 3. Hyponatremia -resolved, serum sodium wnl 4. DM -Hold oral hypoglycemics while inpatient -FS q6h -ISS 5. card hypertension - b/p better controlled, continue labetolol 400mg bid and procardia 30mg BID - echo LV wnl, ef 60-65% - strict b/p monitoring - cardiology consulted and following 6. Ppx -Sq heparin Dispo: Pt currently requires inpatient management of his emergent condition. Visit type - Emergency Visit Emergency Visit: Yes ED Registration Date: 05/22/17 Care time: The patient presented to the Emergency Department on the above date and was hospitalized for further evaluation of their emergent condition. - New Patient This patient is new to me today: No - Critical Care Critical Care patient: No - Discharge Referral Referred to [facility] No
[2017-05-29] MEDS: PANTOPRAZOLE SODIUM 100 ML IVPB SCH (10:04)
[2017-05-29] MEDS: LACTOBACILLUS ACIDOPHILUS 1 EACH TAB (FP) PO SCH (10:04)
[2017-05-29] MEDS: NIFEdipine E.R. 30 MG TABLET (FP) PO SCH ×2 (10:05→21:41)
[2017-05-29] MEDS: CEFTRIAXONE 100 ML IVPB SCH (10:05)
[2017-05-29] MEDS: LABETALOL HCL 100 MG TABLET (FP) PO SCH ×2 (10:05→21:40)
[2017-05-29] MEDS: SODIUM BICARBONATE 650 MG TABLET PO SCH ×2 (10:05→21:39)
--- NOTE | 2017-05-29 11:02 | PN ---
Progress Note (short form) - Note Progress Note: Renal Follow up for CARMEN Pt seen and examined at the bedside s/p sucessful renal biopsy yesterday pt reports more upper and LE swelling today no sob, chest pain, cough, abd pain, flank pain, hematuria Vital Signs Temperature 98 F 05/29/17 10:00 Pulse Rate 78 05/29/17 10:00 Respiratory Rate 18 05/29/17 10:00 Blood Pressure 163/78 05/29/17 10:00 O2 Sat by Pulse Oximetry (%) 97 05/28/17 22:00 Intake & Output 05/26/17 05/27/17 05/28/17 05/29/17 23:59 23:59 23:59 23:59 Intake Total 1200 2375 1350 Output Total 100 450 550 Balance 1100 2375 -450 800 Weight 263 lb Gen: NAD, awake and alert CVS: RRR, No M/R Lungs CTA, no rales Abd: soft NT/ND Ext: 1+ edema in upper and lower ext CBC, BMP 05/29/17 07:00 Laboratory Tests 05/29/17 07:00 Calcium 7.9 L Current Medications Metronidazole (Flagyl 500mg Premixed Ivpb -) 100 mls @ 100 mls/hr IVPB Q8H-IV [facility] Last Admin: 05/29/17 10:05 Dose: Not Given Ceftriaxone Sodium (Rocephin 2gm Ivpb (Pre-Docked)) 100 mls @ 200 mls/hr IVPB DAILY [facility] Last Admin: 05/29/17 10:05 Dose: Not Given Pantoprazole Sodium (Protonix 40mg Ivpb (Pre-Docked)) 100 mls @ 200 mls/hr IVPB BID [facility] Last Admin: 05/29/17 10:04 Dose: 200 mls/hr Insulin Aspart (Novolog Vial Sliding Scale -) 0 vial SQ ACHS [facility] PRN Reason: Protocol Last Admin: 05/29/17 06:24 Dose: 4 units Labetalol HCl (Normodyne -) 400 mg PO BID [facility] Last Admin: 05/29/17 10:05 Dose: 400 mg Lactobacillus Acidophilus (Bacid -) 1 tab PO DAILY [facility] Last Admin: 05/29/17 10:04 Dose: 1 tab Metoclopramide HCl (Reglan Injection -) 5 mg IVPB ACHS [facility] Last Admin: 05/29/17 06:24 Dose: 5 mg Morphine Sulfate (Morphine Injection -) 4 mg IVPUSH Q4H PRN PRN Reason: PAIN Last Admin: 05/24/17 19:33 Dose: 4 mg Nifedipine (Procardia Xl -) 30 mg PO BID [facility] Last Admin: 05/29/17 10:05 Dose: 30 mg Ondansetron HCl (Zofran Injection) 4 mg IVPUSH Q6H PRN PRN Reason: NAUSEA AND/OR VOMITING Sodium Bicarbonate (Sodium Bicarbonate -) 650 mg PO BID [facility] Last Admin: 05/29/17 10:05 Dose: 650 mg A/P 56 year old Gentleman with PMhx of DM not on insulin presented wit N/V and found to have CARMEN with Cr 1.7 to 3.4 #Non Oliguirc Acute Renal Failure with Nephrotoic Range Proteinuria s/p renal biopsy yesterday, hopefully will get preliminary result by this afternoon serologic studies are still pending renal function has been essentially stable over the past 48 hours d/c IVF pt able to tolerate po intake at this time repeat BUN/Cr in am if no biopsy report obtained today and renal function stable tomororw and pt able to maintain good oral intake can be discharged and follow up as an outpatient dose all meds for Cr Cl less then 15 #Uncontrolled Hypertension Continue Labetalol 400mg BID and Procardia xl 30mg BID ? Procardia contributing to edema - will d/c fluids and monitor response #Nausea/Fever continue abx as per primary team Justin Cohen DO
[2017-05-29] MEDS ORDERED: INSULIN (NOVOLOG) ASPART 100 UNITS/ML 10ML VIAL ONE ×3 (11:57→21:33)
[2017-05-29 14:14] LABS: COMPLEMENT C3 134 mg/dL (82-167); COMPLEMENT C4 29 mg/dL (14-44)
[2017-05-29] MEDS ORDERED: BISMUTH SUBSALICYLATE 524 MG/30 ML UD PO SCH (14:30)
[2017-05-29 16:25] LABS: C-ANCA <1:20 titer (Neg:<1:20); MYELOPEROXIDASE ANTIBODY <9.0 U/mL (0.0-9.0); P-ANCA <1:20 titer (Neg:<1:20); PROTEINASE-3 ANTIBODY <3.5 U/mL (0.0-3.5)
[2017-05-29 18:22] LABS: MCH 29.9 pg (25.7-33.7); MCHC 34.5 g/dl (32.0-35.9); MEAN CELL VOLUME 86.8 fl (80-96); MEAN PLT VOLUME 8.1 fl (7.5-11.1); PLATELET COUNT 398 K/MM3 (134-434); RDW 12.1 % (11.9-15.9); WHITE BLOOD COUNT 9.3 K/mm3 (4.0-10.8)
[2017-05-29] MEDS ORDERED: PT OWN MED DRAWER 7, Y5N ONE ×2 (20:14→22:32)
[2017-05-29] MEDS: TETRACYCLINE HCL 500 MG PO SCH (20:18)
[2017-05-29] MEDS: metroNIDAZOLE 250 MG TABLET PO SCH (21:41)
[2017-05-29] MEDS: BISMUTH SUBSALICYLATE 524 MG/30 ML UD PO SCH (21:42)
[2017-05-29] MEDS: PANTOPRAZOLE 20 MG TABLET (FP) PO SCH (21:42)
[2017-05-29] MEDS ORDERED: AMOXICILLIN 500 MG CAPSULE (FP) PO SCH (22:00)
[2017-05-29] MEDS ORDERED: metroNIDAZOLE 250 MG TABLET PO SCH (22:00)
[2017-05-30] MEDS: BISMUTH SUBSALICYLATE 524 MG/30 ML UD PO SCH ×3 (06:18→06:31)
[2017-05-30] MEDS: metroNIDAZOLE 250 MG TABLET PO SCH (06:18)
[2017-05-30] MEDS: INSULIN SLIDING SCALE (NOVOLOG) 1 VIAL SQ SCH (06:35)
[2017-05-30] MEDS ORDERED: PT OWN MED DRAWER 7, Y5N ONE (09:49)
[2017-05-30 09:51] LABS: BASOPHIL 4.2 % (0-2.0); EOSINOPHIL 1.3 % (0-4.5); MCH 30.8 pg (25.7-33.7); MCHC 35.3 g/dl (32.0-35.9); MEAN CELL VOLUME 87.2 fl (80-96); NEUTROPHILS 58.4 % (42.8-82.8); PLATELET COUNT 391 K/MM3 (134-434); WHITE BLOOD COUNT 7.7 K/mm3 (4.0-10.8)
--- NOTE | 2017-05-30 09:56 | PN ---
Progress Note (short form) - Note Progress Note: Renal Follow up for CARMEN Pt seen and examined at the bedside no acute complaints was able to eat and drink well yesterday no N/V/D Legs swollen no sob, chest pain Vital Signs Temperature 98.6 F 05/30/17 06:00 Pulse Rate 71 05/30/17 06:00 Respiratory Rate 16 05/30/17 08:51 Blood Pressure 163/65 05/30/17 06:00 O2 Sat by Pulse Oximetry (%) 98 05/30/17 08:51 Intake & Output 05/27/17 05/28/17 05/29/17 05/30/17 23:59 23:59 23:59 23:59 Intake Total 2375 4050 Output Total 450 1700 1000 Balance 2375 -450 2350 -1000 Weight 263 lb 265 lb 4 oz Gen: NAD, awake and alert CVS: RRR, No M/R Lungs CTA, no rales Abd: soft NT/ND Ext: 1+ edema in upper and lower ext Current Medications Bismuth Subsalicylate (Pepto-Bismol -) 524 mg PO TID [facility] Stop: 06/08/17 21:59 Last Admin: 05/30/17 06:31 Dose: 524 mg Insulin Aspart (Novolog Vial Sliding Scale -) 0 vial SQ ACHS [facility] PRN Reason: Protocol Last Admin: 05/30/17 06:35 Dose: 2 units Labetalol HCl (Normodyne -) 400 mg PO BID [facility] Last Admin: 05/29/17 21:40 Dose: 400 mg Lactobacillus Acidophilus (Bacid -) 1 tab PO DAILY [facility] Last Admin: 05/29/17 10:04 Dose: 1 tab Metronidazole (Flagyl -) 500 mg PO TID [facility] Stop: 06/08/17 21:59 Last Admin: 05/30/17 06:18 Dose: 500 mg Morphine Sulfate (Morphine Injection -) 4 mg IVPUSH Q4H PRN PRN Reason: PAIN Last Admin: 05/24/17 19:33 Dose: 4 mg Nifedipine (Procardia Xl -) 90 mg PO DAILY [facility] Ondansetron HCl (Zofran Injection) 4 mg IVPUSH Q6H PRN PRN Reason: NAUSEA AND/OR VOMITING Pantoprazole Sodium (Protonix -) 20 mg PO BID [facility] Stop: 06/08/17 21:59 Last Admin: 05/29/17 21:42 Dose: 20 mg Sodium Bicarbonate (Sodium Bicarbonate -) 650 mg PO BID [facility] Last Admin: 05/29/17 21:39 Dose: 650 mg Tetracycline HCl (Tetracycline Hcl) 500 mg PO BID@799,1999 [facility] Stop: 06/08/17 19:59 Last Admin: 05/29/17 20:18 Dose: 500 mg A/P 56 year old Gentleman with PMhx of DM not on insulin presented wit N/V and found to have CARMEN with Cr 1.7 to 3.4 #Non Oliguirc Acute Renal Failure with Nephrotoic Range Proteinuria todays labs are pending if Cr remains stable can plan for discharge with outpatient follow up next week expect biopsy result on Thursday serologic work up still pending advised pt to avoid nsaids as outpatient low salt diet no acute indication for [employer] #Uncontrolled Hypertension Continue Labetalol [id number] and increased procarida to 90mg Daily #DM pt should not resume Metformin on discharge can resume glipizide #Nausea/Fever continue abx as per primary team Justin Cohen DO
[2017-05-30] MEDS ORDERED: NIFEdipine E.R. 90 MG TABLET (FP) PO SCH (10:00)
[2017-05-30] MEDS: TETRACYCLINE HCL 500 MG PO SCH (10:02)
[2017-05-30] MEDS: LACTOBACILLUS ACIDOPHILUS 1 EACH TAB (FP) PO SCH (10:03)
[2017-05-30] MEDS: SODIUM BICARBONATE 650 MG TABLET PO SCH (10:03)
[2017-05-30] MEDS: LABETALOL HCL 100 MG TABLET (FP) PO SCH (10:03)
[2017-05-30] MEDS: PANTOPRAZOLE 20 MG TABLET (FP) PO SCH (10:03)
[2017-05-30 10:09] VITALS: BP 182/78; PULSE 84; TEMP 98
[2017-05-30 10:11] LABS: ALK PHOS 89 U/L (32-92); ANION GAP 5 (8-16); BILIRUBIN,TOTAL 0.6 mg/dl (0.2-1.0); CALCIUM 7.7 mg/dl (8.4-10.2); CO2 17 mmol/L (22-28); CREATININE 3.6 mg/dl (0.6-1.3); GLUCOSE,RANDOM 195 mg/dl (74-106); MAGNESIUM 2.2 mg/dL (1.8-2.4); SGOT/AST 29 U/L (10-42); SGPT/ALT 26 U/L (10-40); TOT PROT 5.2 g/dl (6.4-8.3)
--- NOTE | 2017-05-30 11:10 | DS ---
Physical Exam: SUBJECTIVE: Patient seen and examined at bedside. Pt offers no c/o. Requesting to be discharged. Cr remains elevated but stable. OBJECTIVE: Vital Signs 3 Period Temp Pulse Resp BP Sys/Ann Pulse Ox Last 24 Hr 98 F-98.9 F 71-86 16-18 140-182/65-78 97-98 PHYSICAL EXAM GENERAL: The patient is awake, alert, and fully oriented, in no acute distress. HEAD: Normal with no signs of trauma. EYES: PERRL, extraocular movements intact, sclera anicteric, conjunctiva clear. ENT: Ears normal, nares patent, oropharynx clear without exudates, moist mucous membranes. NECK: Trachea midline, full range of motion, supple. LUNGS: Breath sounds equal, clear to auscultation bilaterally, no wheezes, no crackles, no accessory muscle use. HEART: Regular rate and rhythm, S1, S2 without murmur, rub or gallop. ABDOMEN: Soft, nontender, nondistended, normoactive bowel sounds, no guarding, no rebound, no hepatosplenomegaly, no masses. EXTREMITIES: 2+ pulses, warm, well-perfused, trace dependant edema. NEUROLOGICAL: Cranial nerves II through XII grossly intact. Normal speech, gait not observed. PSYCH: Normal mood, normal affect. SKIN: Warm, dry, normal turgor, no rashes or lesions noted. LABS Laboratory Results - last 24 hr 3 05/27/17 05/28/17 05/29/17 12:10 09:30 08:15 WBC 9.3 RBC 4.10 Hgb 12.3 Hct 35.6 MCV 86.8 MCH 29.9 MCHC 34.5 RDW 12.1 Plt Count 398 MPV 8.1 Neutrophils % Lymphocytes % Monocytes % Eosinophils % Basophils % Sodium Potassium Chloride Carbon Dioxide Anion Gap BUN Creatinine Creat Clearance w eGFR POC Glucometer Random Glucose Calcium Magnesium Total Bilirubin AST ALT Alkaline Phosphatase Total Protein Albumin c-ANCA <1:20 Proteinase 3 (PR3) <3.5 p-ANCA <1:20 Atypical p-ANCA <1:20 Myeloperoxidase Ab <9.0 Complement C3 134 Complement C4 29 Tot Complement (CH50) > 65 H 3 05/29/17 05/29/17 05/29/17 12:05 16:42 22:35 WBC RBC Hgb Hct MCV MCH MCHC RDW Plt Count MPV Neutrophils % Lymphocytes % Monocytes % Eosinophils % Basophils % Sodium Potassium Chloride Carbon Dioxide Anion Gap BUN Creatinine Creat Clearance w eGFR POC Glucometer 185 211 209 Random Glucose Calcium Magnesium Total Bilirubin AST ALT Alkaline Phosphatase Total Protein Albumin c-ANCA Proteinase 3 (PR3) p-ANCA Atypical p-ANCA Myeloperoxidase Ab Complement C3 Complement C4 Tot Complement (CH50) 3 05/30/17 05/30/17 05/30/17 06:26 09:46 09:46 WBC 7.7 RBC 3.89 L Hgb 12.0 Hct 34.0 L MCV 87.2 MCH 30.8 MCHC 35.3 RDW 12.0 Plt Count 391 MPV 7.0 L D Neutrophils % 58.4 D Lymphocytes % 28.0 D Monocytes % 8.1 Eosinophils % 1.3 Basophils % 4.2 H D Sodium 135 L Potassium 3.9 Chloride 113 H Carbon Dioxide 17 L Anion Gap 5 L BUN 45 H Creatinine 3.6 H Creat Clearance w eGFR 17.76 POC Glucometer 162 Random Glucose 195 H Calcium 7.7 L Magnesium 2.2 Total Bilirubin 0.6 AST 29 ALT 26 Alkaline Phosphatase 89 Total Protein 5.2 L Albumin 2.0 L c-ANCA Proteinase 3 (PR3) p-ANCA Atypical p-ANCA Myeloperoxidase Ab Complement C3 Complement C4 Tot Complement (CH50) HOSPITAL COURSE: Date of Admission:05/22/17 Date of Discharge: 05/30/17 Minutes to complete discharge: 50 Discharge Summary Reason For Visit: PANCREATITIS Current Active Problems Acute kidney failure (Acute) Diabetes mellitus (Acute) Diarrhea (Acute) Hypertension (Acute) Hypovolemia (Acute) Pancreatitis (Acute) Proteinuria (Acute) Vomiting (Acute) Hospital Course: This is a 56 year old male with a past medical history of diabetes who presented to the ED on 05/22 with a 5 day history of nausea, vomiting and diarrhea. He stated that every time he eats he either vomits or gets diarrhea. No further vomiting since this am; he had not eaten anything since then. He also reported his abdominal pain had resolved. He was vague in his description of his pain and was unable to pinpoint the pain. He stated "in my abdomen" and then waved his hand all over. He denied SOB, chest pain, palpitations, dysuria. He was found to have an elevated lipase of [address] scan revealed gallstones in the gall bladder without dilitation of the CBD and normal LFT's. He was noted to have elevated Cr to 2.0 and Na of 133. His lipase normalized the following morning after. F/u US showed no evidence of acute cholecystitis with echogenic right kidney. Aggressive fluid hydration given which resolved his hyponatremia. On day of discharge, his Cr stabilized and was cleared for d/ c by renal. During this time, his blood pressure continued to rise and was started on nifedipine ER and Labetalol with SBP's staying in the 140's. Pt instructed to f/u with renal and his PMD to better control his BP and to resume his glipizide but hold his metformin. Condition: Stable - Instructions Diet, Activity, Other Instructions: Follow up with Dr. Cohen on Thursday as scheduled to review the results of the kidney biopsy. Call your primary doctor for an appointment as soon as possible. Your A1c is highly elevated and needs adjustment of your medications to bring it down. Eat a well balanced diet by having small frequent meals throughout the day. Exercise more frequently. Start with low impact exercise and progress as you are able to tolerate. Avoid alcohol. Referrals: Jennifer Abdullahi MD [Primary Care Provider] - Disposition: HOME - Home Medications Comprehensive Discharge Medication List: Ambulatory Orders 3 Medication Instructions Recorded Glipizide 5 mg PO HS #1 tablet 05/30/17 Glipizide [Glucotrol] 10 mg PO DAILY #0 tab 05/30/17 Labetalol HCl [Normodyne -] 400 mg PO BID #60 tablet 05/30/17 Nifedipine ER [Procardia XL -] 90 mg PO DAILY #30 tab 05/30/17 This patient is new to me today: Yes Date on this admission: 06/07/17 Emergency Visit: Yes ED Registration Date: 05/22/17 Care time: The patient presented to the Emergency Department on the above date and was hospitalized for further evaluation of their emergent condition. Critical Care patient: No - Discharge Referral Referred to [facility] Med P.C.: No
--- NOTE | 2017-06-24 10:42 | PATH ---
Surgical Pathology Report Patient Name: SAIMA RIVAS Med. Rec. #: [id number] /Age/Gender: 1960 (Age: 56) / M Account: [id number] Location: [facility] MED-SURG Taken: 05/28/2017 Received: 05/28/2017 Reported: 06/24/2017 Physicians: Segundo Castañeda M.D. Specimen(s) Received RENAL BIOPSY Clinical History 56 yo AA male with nausea, vomiting, diarrhea and CARMEN with a Cr of 1.7 mg/dl, increasing over5 days to 3.6 mg/dl despite IV hydration. PMH includes DM for 20 years with HbA1c 10.2%. Urinalysis reveals 3+ protein and 2+ blood. Urine Pr:Cr ratio of 5.5 and 3.9 on two determinations, no serum M-spike, normal CH50, albumin1.8 g/dl, negative SHAE and HIV, negative ANCA, HCV Ab, BP 171/71, 2+ edema and kidneys which measure 13.5 and 13.6 cm by US. Intraoperative Consult Diagnosis Renal biopsy: Few glomeruli present. Dr. Gunn, 05/28/17. Final Diagnosis RENAL BIOPSY ([facility], [id number]): 1. FOCAL SEGMENTAL GLOMERULOSCLEROSIS (SEE NOTE). 2. DIFFUSE DIABETIC GLOMERULOSCLEROSIS, MILD. 3. TUBULAR DEGENERATIVE CHANGES, DIFFUSE. 4. TUBULAR ATROPHY, INTERSTITIAL FIBROSIS AND INTERSTITIAL INFLAMMATION, MILD. 5. ARTERIOLAR SCLEROSIS WITH HYALINOSIS, MILD TO MODERATE. Comment: The immunofluorescence findings provide evidence against glomerular disease of immune complex type. The findings present a complex and a notable for multiple apparent disease processes. First, glomeruli exhibit mild changes of diffuse diabetic glomerular sclerosis (DDGS), as confirmed on ultrastructural evaluation. Second, the single glomerulus exhibits a lesion of focal segmental glomerulosclerosis (FSGS). 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 Third, the biopsy is notable for diffuse acute tubular injury which correlates with the history of a CARMEN and appears consistent with acute tubular necrosis. Ischemic and toxic forms of tubal injury should be considered. Of note, the patient's florid nephrotic syndrome may also be contributing to the acute tubular injury. Clinical correlation is required. The findings have been discussed with Dr. Cohen. Light microscopy: Sections of stained with H&E, PAS, trichrome and JMS. Sections reveal a single core of renal cortex with overlying capsule. There are 9 glomeruli present, one of which is globally sclerotic. Glomeruli range from normal in size to mildly enlarged, appear normocellular and exhibit a mild global increase in mesangial matrix. A single glomerulus (seen best on level 16) displays a lesion of segmental sclerosis with GBM wrinkling and retraction, and focal increase in matrix material, and swelling and proliferation of overlying epithelial cells. Elsewhere the single glomerulus (on level 9) displays focal intracapillary neutrophils. The proximal tubules display diffuse and prominent degenerative changes characterized by luminal ectasia, cytoplasmic simplification, irregular luminal cone first, prominent nucleoli, and focal apoptotic figures. There is mild interstitial inflammation composed of mainly lymphocytes. There is mild tubal atrophy and interstitial fibrosis. Sampling of blood vessels is limited to arterioles which exhibit mild to moderate arteriosclerosis hyalinosis. Electron microscopy: Results: A. Glomerular basement membrane thickening, global 1-2+ B. Mesangial sclerosis, global, 1-2+ C. C. Foot process effacement, 100% Consistent with: 1. Focal segmental glomerulosclerosis. 2. Diffuse diabetic glomerulosclerosis, mild. 3. Tubular degenerative changes, diffuse. 4. Tubal atrophy, interstitial fibrosis, and interstitial inflammation, mild. 5. Arteriosclerosis with hyalinosis, mild to moderate. Signed out by Jakub Cornell MD, 06/06/17. Electronically Signed Louie Gunn M.D. Gross Description Received fresh labeled "renal biopsy" is a 1.4 cm in length x 0.1 cm in diameter faith, cylindrical portion of soft tissue, consistent with a renal biopsy. An intraoperative gross examination is performed. The specimen is divided, placed in 10% buffered formalin, Dillon fixative and glutaraldehyde. The specimen is sent to [facility] for further studies. 05/28/201705/28/2017
== END 2017-05-30 13:00 | disposition home or self-care (01) | DRG 282 ==
LOC: FER 11:03 → FM/S 17:10 → JSAMEDAYSX 05-28 13:33 → FM/S 05-28 19:22
PROVIDERS: ADMIT Internal Medicine; ATTEND Nurse Practitioner Family
PROC: 0TB33ZX Excision of Right Kidney Pelvis, Percutaneous Approach, Diagnostic (ICD-10-PCS; principal; 2017-05-28)
DX: K85.90 Acute pancreatitis without necrosis or infection, unspecified (principal); N17.9 Acute kidney failure, unspecified; R19.7 Diarrhea, unspecified; E87.1 Hypo-osmolality and hyponatremia; K80.20 Calculus of gallbladder without cholecystitis without obstruction; I12.9 Hypertensive chronic kidney disease with stage 1 through stage 4 chronic kidney disease, or unspecified chronic kidney disease; E11.22 Type 2 diabetes mellitus with diabetic chronic kidney disease; N18.9 Chronic kidney disease, unspecified; E86.1 Hypovolemia; E88.09 Other disorders of plasma-protein metabolism, not elsewhere classified; Z87.891 Personal history of nicotine dependence; R11.0 Nausea; R80.9 Proteinuria, unspecified
CPT/HCPCS: 36415; 50200; 74176-TC; 76700-TC; 76705-TC; 76775-TC; 76856-TC; 76942-TC; 80048; 80053; 80061; 80307; 81003; 81015; 82009; 82150; 82550; 82570; 83036; 83520; 83615; 83690; 83735; 83874; 83935; 84100; 84155; 84156; 84165; 84300; 84439; 84443; 84480; 84520; 84550; 85025; 85027; 85610; 85651; 86038; 86160; 86162; 86256; 86704; 86803; 87086; 87350; 87389; 88329; 93005; 93306-TC; 99283-25; J1644

== ENCOUNTER 2017-06-01 11:18 | Emergency (ER) | payer OTHER ==
[2017-06-01 11:41] VITALS: BMI 34.0
--- NOTE | 2017-06-01 12:25 | PDOC ---
History of Present Illness - General Chief Complaint: Pain, Acute Stated Complaint: PAIN ALL OVER AND BILATERAL LOWER LEG SWELLING Time Seen by Provider: 06/01/17 11:44 History Source: Patient Exam Limitations: No Limitations - History of Present Illness Initial Comments: 06/01/17 12:17 The patient is a 56M with a PMH of acute kidney failure, DM, HTN, hypovolemia, and pancreatitis who has presented to the ED with complaints of b/l leg swelling. The patient was admitted on 05/22/17 for 10 days for complains of nausea, vomiting, and abdominal pain. The patient was found to have acute pancreatitis. He was also found to have acute renal failure secondary to hypovolemia. The patient states that he did not want to be discharged from the hospital because he was not feeling well. A renal bx was also performed during his admission. Today he complains of b/l leg swelling and subsequent back pain when he tries to walk. The patient states he was discharged in the same status but the pain today is not tolerable. He states that he cannot take "water pills " because of his kidney status. ROS+: per HPI, pain in legs, swelling ROS-: CP, SOB, orthopnea, headache, fever, chills, nausea, vomiting, numbness, tingling, weakness, abdominal pain Social: Does not smoke, drink, or use recreational drugs Surg: Ankle surgery Allergies: NKDA Fam Hx: Father had 2 strokes at the age of 75 Past History - Past Medical History Allergies/Adverse Reactions: Allergies Allergy/AdvReac Type Severity Reaction Status Date / Time No Known Allergies Allergy Verified 06/01/17 11:28 Home Medications: Ambulatory Orders Glipizide 5 mg PO HS #1 tablet 05/30/17 Glipizide [Glucotrol] 10 mg PO DAILY #0 tab 05/30/17 Labetalol HCl [Normodyne -] 400 mg PO BID #60 tablet 05/30/17 Nifedipine ER [Procardia XL -] 90 mg PO DAILY #30 tab 05/30/17 DVT: Yes (RIGHT THIGH) Diabetes: Yes (FOR 20 YEARS) HTN: Yes Other medical history: PANCREATITIS,RENAL FAILURE, - Surgical History Neurologic Surgery: (LEFT ANKLE SURGERY) - Psycho/Social/Smoking Cessation Hx Anxiety: No Suicidal Ideation: No Smoking History: Former smoker Have you smoked in the past 12 months: No If you are a former smoker, when did you quit?: 30 YEARS AGO Information on smoking cessation initiated: No Hx Alcohol Use: No Drug/Substance Use Hx: No Substance Use Type: None Review of Systems - Review of Systems Able to Perform ROS?: Yes Is the patient limited Czech proficient: No Constitutional: No: Chills, Fever Respiratory: No: Orthopnea, Shortness of Breath Cardiac (ROS): No: Chest Pain ABD/GI: No: Nausea, Vomiting : No: Dysuria, Discharge Musculoskeletal: Yes: Back Pain Neurological: No: Headache, Numbness, Paresthesia, Tingling, Weakness *Physical Exam - Vital Signs Last Vital Signs Temp Pulse Resp BP Pulse Ox 99.9 F H 87 16 188/88 98 06/01/17 11:19 06/01/17 11:19 06/01/17 11:19 06/01/17 11:19 06/01/17 11:19 - Physical Exam General Appearance: Yes: Nourished, Appropriately Dressed HEENT: positive: EOMI, Normal Voice Respiratory/Chest: positive: Lungs Clear, Normal Breath Sounds. negative: Respiratory Distress Cardiovascular: positive: Regular Rhythm, Regular Rate, S1, S2 Gastrointestinal/Abdominal: positive: Soft, Distended. negative: Tender Musculoskeletal: positive: Other (Back pain with flexion, unable to perform CVA tenderness exam) Integumentary: positive: Normal Color, Dry, Warm, Swelling (3+ pitting edema in leg, 1+ in upper thigh, no pitting edema in abdomen) Neurologic: positive: Fully Oriented, Alert, Normal Mood/Affect ED Treatment Course - LABORATORY CBC & Chemistry Diagram: 06/01/17 13:05 06/01/17 13:05 Medical Decision Making - Medical Decision Making 06/01/17 13:09 Patient is a 56M with a PMH of acute kidney failure, DM, HTN, hypovolemia, and pancreatitis who is presenting to the ED with complains of b/l lower extremity swelling and back pain. He was discharged 3 days ago from the hospital for acute renal failure and pancreatitis. He states that today his pain is worse. He does have follow up with his PCP and testing and regulating chief. Blood has been drawn, CBC , CMP, and creatinine kinase have been sent. An order for an US doppler of lower extremities has been ordered as well. UA is ordered. Will update the patient as results come in. DDx: Unchanged acute renal failure, DVT, hyperkalemia, diabetic nephropathy. 06/01/17 13:[address] Cohen, the patient's testing and regulating chief. He suggested repeating Cr and if stable or improving, to order 40mg oral Lasix. Labs returned with an improvement of Cr (3.6 to 3.2). I have ordered the 40mg oral Lasix. I have updated the patient on his labs. 06/01/17 15:40 Patient was informed about lab results and a long discussion was had with regards to good follow up with referred physicians from previous admission. Patient agrees. Patient also understands to return if symptoms persist, worsen, or new symptoms arise. *DC/Admit/Observation/Transfer Diagnosis at time of Disposition: Edema of lower extremity - Discharge Dispostion Disposition: HOME Admit: No - Patient Instructions Additional Instructions: Please return to the ER if symptoms persist, worsen, or if new symptoms arise. - Attestations Physician Attestion: 06/01/17 15:42 I, Dr. Edi Conner, attest that this document has been prepared under my direction and personally reviewed by me in its entirety. I further attest, that it accurately reflects all work, treatment, procedures and medical decision -making performed by me.
[2017-06-01 13:31] LABS: MCH 30.5 pg (25.7-33.7); MCHC 34.8 g/dl (32.0-35.9); MEAN CELL VOLUME 87.6 fl (80-96); MEAN PLT VOLUME 7.2 fl (7.5-11.1); PLATELET COUNT 389 K/MM3 (134-434); RDW 12.4 % (11.9-15.9); WHITE BLOOD COUNT 8.8 K/mm3 (4.0-10.8)
[2017-06-01 13:41] LABS: ALBUMIN 2.3 g/dl (3.5-5.0); ALK PHOS 136 U/L (32-92); ANION GAP 4 (8-16); BILIRUBIN,TOTAL 0.7 mg/dl (0.2-1.0); CALCIUM 8.3 mg/dl (8.4-10.2); CO2 19 mmol/L (22-28); CREATININE 3.2 mg/dl (0.6-1.3); GLUCOSE,RANDOM 203 mg/dl (74-106); SGOT/AST 44 U/L (10-42); SGPT/ALT 51 U/L (10-40); TOT PROT 5.6 g/dl (6.4-8.3)
[2017-06-01] MEDS ORDERED: FUROSEMIDE 40 MG TABLET (FP) PO ONE (13:45)
[2017-06-01 13:46] LABS: PH,URINE 5.5 (4.5-8); URINE APPEARANCE Clear; URINE BILIRUBIN Negative (NEGATIVE); URINE GLUCOSE (UA) 1+ (NEGATIVE); URINE KETONE Negative (NEGATIVE); URINE LEUK ESTERASE Negative (NEGATIVE); URINE NITRITE Negative (NEGATIVE); URINE UROBILINOGEN 0.2 E.U/dl (0.2-1.0)
[2017-06-01 13:49] LABS: URINE BLOOD 1+ (NEGATIVE); URINE COLOR YELLOW; URINE PROTEIN 3+ (NEGATIVE)
[2017-06-01 13:52] LABS: TROPONIN I (DFP) 0.03 ng/ml (0.03-0.50)
[2017-06-01] MEDS ORDERED: FUROSEMIDE 40 MG TABLET (FP) ONE (13:54)
--- NOTE | 2017-06-01 13:54 | PDOC ---
Attending Attestation - Resident Resident Name: SamyyrisEdi - ED Attending Attestation I have performed the following: I have examined & evaluated the patient, The case was reviewed & discussed with the resident, I agree w/resident's findings & plan, Exceptions are as noted - HPI HPI: 06/01/17 13:52 Agree with the resident's HPI as documented in the electronic medical record. - Physicial Exam PE: 06/01/17 13:53 Agree with the resident's physical examination as documented in the electronic medical record. - Medical Decision Making 06/01/17 13:53 56-year-old male with history of diabetes, hypertension, pancreatitis and acute renal failure with recent hospital admission for renal failure workup presents the emergency department with persistent lower extremity swelling and pain. Differential diagnosis includes but is not limited to: DVT, renal failure, electrolyte abnormality, toxic/metabolic derangement, infection. Plan: 1. Labs 2. Bilateral lower extremity duplex 3. Urine analysis 4. Chest x-ray 5. Observe and reevaluate
[2017-06-01 14:17] LABS: CK MB 5.7 ng/ml (0.3-4.0)
[2017-06-01 14:58] LABS: URINE WBC 0-3 (3-5); WAXY CAST 0-1
[2017-06-01 15:39] VITALS: BP 179/83; PULSE 76; TEMP 98.1
== END 2017-06-01 15:54 | disposition home or self-care (01) ==
LOC: FER 11:18
DX: M79.89 Other specified soft tissue disorders (principal); I10 Essential (primary) hypertension; E11.9 Type 2 diabetes mellitus without complications; Z86.718 Personal history of other venous thrombosis and embolism; E86.1 Hypovolemia; K85.90 Acute pancreatitis without necrosis or infection, unspecified; N19 Unspecified kidney failure
CPT/HCPCS: 36415; 71010-TC; 80053; 81003; 81015; 82550; 82553; 84484; 85027; 93970-TC; 99283-25